=== PATIENT | female | born 1950 | race Caucasian/White ===

== ENCOUNTER 2021-04-26 07:35 | Outpatient (REF) | payer MEDICARE, SELFPAY ==
--- NOTE | ~2021-04-26 | MM_ITS ---
EXAMINATION: MM SCREENING DIGITAL BREAST TOMOSYNTHESIS, BILATERAL CLINICAL INFORMATION: Screening. Asymptomatic. The lifetime risk of breast cancer based on the Tyrer-Cuzick Model is 3%. COMPARISON: Mammography: 04/20/2020, 04/15/2019, 04/14/2018 TECHNIQUE: Digital breast tomosynthesis is performed in both the craniocaudal and mediolateral oblique views along with computer-aided detection (CAD). Synthesized 2D images are generated from the tomosynthesis. FINDINGS: There are scattered areas of fibroglandular density (ACR BI-RADS breast composition Category b). There are no significant masses, abnormal calcifications, or other abnormalities. Parenchymal pattern is similar to prior studies. There is stable nodule mid upper outer left breast and all in stable nodularity central anterior right breast. No developing density. MM/MM tomosynthesis screening BI IMPRESSION: No mammographic evidence of malignancy. ASSESSMENT: BI-RADS 2: Benign RECOMMENDATION: Routine annual mammography screening. This patient's information was entered into a reminder system with a target due date for their next mammogram.
== END 2021-04-26 07:36 | disposition home or self-care (01) ==
LOC: HO.MAMMO 07:35
PROVIDERS: PCP Nurse Practitioner Family; Visit Provider Nurse Practitioner Family
DX: Z12.31 Encounter for screening mammogram for malignant neoplasm of breast (principal)
CPT/HCPCS: 77063; 77067

== ENCOUNTER 2022-04-29 08:50 | Outpatient (REF) | payer MEDICARE, SELFPAY ==
--- NOTE | ~2022-04-29 | MM_ITS ---
EXAMINATION: MM SCREENING DIGITAL BREAST TOMOSYNTHESIS, BILATERAL CLINICAL INFORMATION: Screening. Asymptomatic. The lifetime risk of breast cancer based on the Tyrer-Cuzick Model is 3%. COMPARISON: Mammography: 04/26/2021, 04/20/2020, 04/15/2019, 04/14/2018 TECHNIQUE: Digital breast tomosynthesis is performed in both the craniocaudal and mediolateral oblique views along with computer-aided detection (CAD). Synthesized 2D images are generated from the tomosynthesis. FINDINGS: There are scattered areas of fibroglandular density (ACR BI-RADS breast composition Category b). Parenchymal pattern is similar to prior studies. There is scattered stable minor nodularity mid upper outer left breast and anterior central right breast. There is no developing density or interval architectural abnormality or significant mass. No abnormal calcifications. The axilla and skin contours are unremarkable. No significant changes. MM/MM tomosynthesis screening BI IMPRESSION: No significant changes from prior studies. ASSESSMENT: BI-RADS 2: Benign RECOMMENDATION: Routine annual mammography screening. This patient's information was entered into a reminder system with a target due date for their next mammogram.
== END 2022-04-29 08:51 | disposition home or self-care (01) ==
LOC: HO.MAMMO 08:50
PROVIDERS: PCP Nurse Practitioner Family; Visit Provider Nurse Practitioner Family
DX: Z12.31 Encounter for screening mammogram for malignant neoplasm of breast (principal)
CPT/HCPCS: 77063; 77067

== ENCOUNTER 2023-05-01 08:37 | Outpatient (REF) | payer MEDICARE, SELFPAY | END 2023-05-01 08:38 | disposition home or self-care (01) | LOC: HO.MAMMO 08:37 | PROVIDERS: PCP Nurse Practitioner Family; Visit Provider Nurse Practitioner Family | DX: Z12.31 Encounter for screening mammogram for malignant neoplasm of breast (principal) | CPT/HCPCS: 77063; 77067 ==

== ENCOUNTER → 2023-05-01 08:45 | Outpatient (BNV) | payer MEDICARE, SELFPAY | PROVIDERS: PCP Nurse Practitioner Family; Visit Provider Radiology Diagnostic Radiology | DX: Z12.31 Encounter for screening mammogram for malignant neoplasm of breast (principal) | CPT/HCPCS: 77063; 77067 ==

== ENCOUNTER 2024-05-03 09:28 | Outpatient (REF) | payer MEDICARE, SELFPAY ==
--- NOTE | ~2024-05-03 | MM_ITS ---
EXAMINATION: MM SCREENING DIGITAL BREAST TOMOSYNTHESIS, BILATERAL CLINICAL INFORMATION: Screening. Asymptomatic. COMPARISON: Mammography: Comparison is made with available priors TECHNIQUE: Digital breast mammography with tomosynthesis is performed in both the craniocaudal and mediolateral oblique views along with computer-aided detection (CAD). FINDINGS: There are scattered areas of fibroglandular density (ACR BI-RADS breast composition Category b). Postsurgical changes to the left breast are stable. There are no significant masses, abnormal calcifications, or other abnormalities. MM/MM tomosynthesis screening BI IMPRESSION: No mammographic evidence of malignancy. ASSESSMENT: BI-RADS BI-RADS 2 - Benign Findings RECOMMENDATION: Routine annual mammography screening. 1 year F/U This examination should not preclude the clinical evaluation of a suspicious palpable abnormality. This patient's information was entered into a reminder system with a target due date for their next mammogram. Electronically signed by: Jennifer Olson DO 05/12/2024 07:10 PM EDT
== END 2024-05-03 09:29 | disposition home or self-care (01) ==
LOC: HO.MAMMO 09:28
PROVIDERS: PCP Nurse Practitioner Primary Care; Visit Provider Nurse Practitioner Primary Care
DX: Z12.31 Encounter for screening mammogram for malignant neoplasm of breast (principal)
CPT/HCPCS: 77063; 77067

== ENCOUNTER → 2024-05-03 09:45 | Outpatient (BNV) | payer MEDICARE, SELFPAY | PROVIDERS: PCP Nurse Practitioner Primary Care; Visit Provider Internal Medicine | DX: Z12.31 Encounter for screening mammogram for malignant neoplasm of breast (principal) | CPT/HCPCS: 77063; 77067 ==

== ENCOUNTER 2025-03-31 09:32 | Outpatient (REF) | payer MEDICARE, SELFPAY ==
[2025-03-31 10:48] LABS: MANUAL DIFF FLAG NO
[2025-03-31 11:37] LABS: Hematocrit 42.2 % (37.0-47.0); Hemoglobin 14.6 g/dl (12.0-16.0); Imm Gran Abs Auto 0.01 X10*3/uL (0.00-0.03); Imm Gran Pct Auto 0.2 % (0.0-0.4); Lymphocytes Absolute Auto 0.7 X10*3/uL (1.2-4.9); Mean Corpuscular HGB Conc 34.6 g/dl (31.0-35.0); Mean Corpuscular Hemoglobin 29.4 pg (27.0-33.0); Mean Corpuscular Volume 85.1 fL (80.0-98.0); NRBC Abs Auto 0.000 X10*3/uL (0.0-0.012); NRBC Pct Auto 0.0 /100WBC (0.0-0.2); Platelet Count 275 X10*3/uL (160-400); Red Blood Count 4.96 X10*6/uL (4.20-5.50); White Blood Count 5.8 X10*3/uL (4.8-10.8)
[2025-04-05 07:07] LABS: Class Alternaria alternata 1; Class Aspergillus fumigatus 0; Class Bermuda Grass 0; Class Birch 0; Class Cat Dander 0; Class Cladosporium herbarum 0; Class Cockroach 0; Class Common Ragweed 0; Class Cottonwood 0; Class Derm. pterony 0/1; Class Dermatophagoides farinae 1; Class Dog Dander 0; Class Elm 0; Class Maple Box Elder 0; Class Mountain Cedar 0; Class Mouse Urine Protein 0; Class Mugwort 0; Class Oak 0; Class Penicillium crysogenum 0; Class Rough Pigweed 0; Class Sheep Sorrel 0; Class Sycamore 0; Class Timothy Grass 0; Class Walnut Tree 0; Class White Ash 0; Class White Mulberry 0; D002 - IgE D farinae 0.36 kU/L; E001 - IgE Cat Dander <0.10 kU/L; E005 - IgE Dog Dander <0.10 kU/L; G006 - IgE Timothy Grass <0.10 kU/L; I006-IgE Cockroach, German <0.10 kU/L; M002 - IgE Cladosporium herbar <0.10 kU/L; M003 - IgE Aspergillus fumigat <0.10 kU/L; M006 - IgE Alternaria alternat 0.36 kU/L; T001 IgE Maple/Box Elder <0.10 kU/L; T006 - IgE Cedar, Mountain <0.10 kU/L; T007 - IgE Oak, White <0.10 kU/L; T008 IgE Elm, American <0.10 kU/L; T010 - IgE Walnut <0.10 kU/L; T011 - IgE Maple Leaf Sycamore <0.10 kU/L; T014 - IgE Cottonwood <0.10 kU/L; T015 - IgE Ash, White <0.10 kU/L; T070 - IgE White Mulberry <0.10 kU/L; W001 - IgE Ragweed, Short <0.10 kU/L; W006 - IgE Mugwort <0.10 kU/L; W014 IgE Pigweed, Common <0.10 kU/L; W018 IgE Sheep Sorrel <0.10 kU/L
== END 2025-03-31 09:33 | disposition home or self-care (01) ==
LOC: HO.LAB 09:32
PROVIDERS: PCP Nurse Practitioner Primary Care; Visit Provider Internal Medicine Pulmonary Disease
DX: J84.9 Interstitial pulmonary disease, unspecified (principal); R05.3 Chronic cough; Z91.09 Other allergy status, other than to drugs and biological substances
CPT/HCPCS: 36415; 82785; 85025; 86003; 99202

== ENCOUNTER 2025-03-31 09:32 | Outpatient (AMB) | payer MEDICARE, SELFPAY ==
--- OUTSIDE RECORDS SUMMARY | 2024-12-08 05:05 | XMS_ITS | Continuity of Care Document ---
Author Organization [facility] Address [address] [place] [address] Phone Care Team Providers Care Ear Nose Throat Surgeon Name Role Phone Sachin NEWMAN, Check Unavailable [...] exam of neck spine, complete Office[place] [facility] [place] Advance Directives Directive Yes / No Effective Date File Name No Information Encounters Encounter Description Practice Location Reason(s) For Visit Diagnoses Date Provider Providers Copied on Encounter Office/outpa tient visit,est, [facility], [address], [place], [place], [address], tel:[phone] [facility] [address] right hand pain (chief complaint) Body mass index [BMI] 27.0-27.9, adultTrigger finger, right ring finger 5 Sachin Ashley. [address], [place], [place], [address] , [place]. tel:[phone] Referring Provider: Dion Stephenson MD C, [address], [place], [address] . tel:[phone] Office/outpa tient visit,[facility], [address], [place], [place], [address], [place] tel:[phone] [facility] right hand pain (chief complaint) Trigger finger, right ring finger Dec-0 4 Sachin Ashley. [address], [place], [place], [address] , [place]. tel:[phone] Referring Provider: Dion Tony, [address], [place], [address] . tel:[phone] Office/outpa tient visit,[facility], [address], [place], [place], [address], [place] tel:[phone] [facility] - Walk-in right hand pain (chief complaint) lumbar spine (chief complaint) Right hand painLumbar painTrigger finger, right ring fingerTrochanter ic bursitis of right hip Oct-2 4 Favio Tony Alexandr. [address], [place], [place], [address] , [place]. tel:[phone] Referring Provider: Alexandr Tony, [address], [place], [address] . tel:[phone] Office/outpa tient visit,[facility], [address], [place], [place], [address], [place] tel:[phone] [facility] - Walk-in right hip pain (chief complaint) Acute right hip painGreater trochanteric bursitis of right hip Jun- 3 Favio Tony Alexandr. [address], [place], [place], [address] , [place]. tel:[phone] Referring Provider: Alexandr Tony, [address], [place], [address] . tel:[phone] Office/outpa tient visit,[facility], [address], [place], [place], [address], [place] tel:[phone] [facility] [address] cervical spine (chief complaint) Cervical stenosis of spineRadiculopat hy, cervical region 2 Ganesh Easley. [address], [place], [place], [address] , [place]. tel:[phone] Referring Provider: Tomi Reina MD, [address], [place], [address] . tel:[phone] Office/outpa tient visit,[facility], [facility], [address], [place], [place], [address], [place] tel:[phone] [facility] [address] cervical spine (chief complaint) Cervical stenosis of spineRadiculopat hy, cervical region 2 Ganesh Pattersonia. [address], [place], [place], [address] , [place]. tel:[phone] Referring Provider: Tracee RAMOS, [address], [place], [address] . tel:[phone] Office/outpa tient visit,[facility], [facility], [address], [place], [place], [address], [place] tel:[phone] [facility] [address] cervical spine (chief complaint) Cervical stenosis of spineRadiculopat hy, cervical region 2 Ganesh Easley. [address], [place], [place], [address] , [place]. [phone] Referring Provider: Tracee RAMOS, [address], [place], [address] . tel:[phone] Office/outpa tient visit,est, [facility], [address], [place], [place], [address], [place] tel:[phone] [facility] [address] cervical spine (chief complaint) Cervical stenosis of spineHerniated nucleus pulposus, C4-5Herniated nucleus pulposus, C5-6Herniated nucleus pulposus, C6-7Spondylolist hesis, cervical regionConnective tissue and disc stenosis of intervertebral foramina of cervical regionRight arm numbness 1 Shay Gonzalez. [address], [place], [place], [address] , [place]. [phone] Referring Provider: Carlos Day MD, [address], [place], [address] . tel:[phone] Office/outpa tient visit,[facility], [address], [place], [address], [place] tel:[phone] [facility] 204 cervical spine (chief complaint) Radiculopathy, cervical regionCervical stenosis of spineBody mass index (BMI) 27.0-27.9, adult 1 Nuno Krishna. [address], [place], [place], [address] , [place]. [phone] Referring Provider: Tomi Reina MD, [address], [place], [address] . tel:[phone] Office/outpa tient visit,[facility], [address], [address], [place] tel:[phone] [facility] 400 cervical spine (chief complaint) Cervical stenosis of spineRadiculopat hy, cervical regionHerniated nucleus pulposus, C4-5Herniated nucleus pulposus, C5-6Herniated nucleus pulposus, C6-7Connective tissue and disc stenosis of intervertebral foramina of cervical regionRight arm numbness 1 Shay Gonzalez. [address], [place], [place], [address] , [place]. tel:[phone] Referring Provider: Daquan Koo, [address], [place], [address] . tel:[phone] [facility], [address], [place], [place], [address], [place] tel:[phone] [facility] [address] Body mass index (BMI) 27.0-27.9, adult 1 Nuno Krishna. [address], [place], [place], [address] , [place]. tel: [phone] Referring Provider: Tomi Reina MD, [address], [place], [address] . tel:[phone] Office/outpa tient visit,[facility], [address], [place], [place], [address], [place] tel:[phone] [facility] [address] cervical spine (chief complaint) Body mass index (BMI) 27.0-27.9, adultRadiculopat hy, cervical regionCervical stenosis of spine 1 Nuno Krishna. [address], [place], [place], [address] , [place]. tel: [phone] Referring Provider: Daquan Koo, [address], [place], [address] . tel:[phone] Office/outpa tient visit,[facility], [address], [place], [place], [address], [place] tel:[phone] [facility] [address] cervical spine (chief complaint) Neck painBody mass index (BMI) 27.0-27.9, adultRadiculopat hy, cervical region 0 Merced Butt. [address], [place], [place], [address] , [place]. tel:[phone] Referring Provider: Daquan Koo, [address], [place], [address] . tel:[phone] [facility], [address], [place], [place], [address], tel:[phone] [facility] PT [address] Radiculopathy, cervical region 4-202 0 Guettler DPT Rani. [address], [place], [facility], . tel:[phone] Referring Provider: Carlos Day MD, [address], [place], [address] . tel:[phone] [facility], [address], [place], [place], [address], tel:[phone] [facility] PT [address] Radiculopathy, cervical region 1 0 Guettler DPT Rani. [address] [facility], [place], [facility], . tel:[phone] Referring Provider: Carlos Day MD, [address], [place], [address] . tel:[phone] [facility], [address], [place], [place], [address], tel:[phone] [facility] - PT [address] Cervical radiculopathy 9-202 0 Guettler DPT Rani. [address]50 [facility], [place], [facility], . tel:[phone] Referring Provider: Carlos Day MD, [address], [place], [address] . tel:[phone] Office/outpa tient visit,[facility], [address], [place], [place], [address], tel:[phone] [facility] - Walk-in cervical spine (chief complaint) Body mass index (BMI) 27.0-27.9, adultNeck painCervical radiculopathy Nov-3 0 0 Miriam Ortiz. [address], [place], [place], [address] , [place]. tel:[phone] Referring Provider: Angel Tony, [address], [place], [address] . tel:[phone] Family History Family Member Type Diagnosis Age At Onset No Information Payers Payer name Insurance type Covered libertarian ID Authoriza tion(s) MEDICARE [id number] BCBS PPO OUT OF STATE [id number] Social History Type Description Quantity Date Captured [...] 2019. Patient received 2 injections one in [place] and one with Alexandr HUNTLEY which provided [...] finger. She states she an injection up [place] in April 2022 that she has been [...] still symptomatic, I would recommend an A1 randy release at that time. Related to Trigger [...] today's injection. She will be returning to [facility] for the summer in another month. [...] ongoing since 2022, no trauma. Seen at [facility] on 10/21/2023 and received an injection which provided significant improvement X8 months. Discussed repeat injection vs TFR; wants to proceed non-opOn 12/08/2024: Moderate improvement s/p RT RF TF injection received on 07/11/2024, with mild recurrence. Unchanged exam. Requests repeat inj Patient Care Teams Name Effective Dates (start - stop) Status Members No Information
[2025-03-31 09:35] VITALS: BP 106/62; PULSE 71; O2SAT 97; BMI 27.8
--- NOTE | 2025-03-31 09:35 | MHC.OFFVIS ---
Vital Signs 03/31/25 09:35 Height 5 ft 2 in Weight 152 lb BMI 27.8 BP 106/62 Blood Pressure Location Lt brachial Position Sitting Pulse 71 Pulse Source Pulse Oximeter Pulse Oximetry (%) 97 Oxygen Delivery Method Room Air Intake Visit Reasons: Chronic cough Allergies polyvinyl Allergy (Unknown, Uncoded 03/31/25 09:45) Unknown PPD Allergy (Unknown, Uncoded 03/31/25 09:45) Unknown Sulfa Allergy (Unknown, Uncoded 03/31/25 09:45) Unknown HPI HPI Chronic cough: Details: 74-year-old lady, essentially nonsmoker, here for evaluation of chronic cough ongoing for approximately 2 years, mostly nocturnal, essentially nonproductive, with no triggering factor. Denies GERD symptoms. Patient previously employed as an RT. no family history of lung disease. Patient has been tried on systemic glucocorticoids and albuterol MDI with no significant changes in her cough. She does use lisinopril. [facility] Social History (Updated 03/31/25 @ 09:45 by Mari Melvin [facility]) Patient Tobacco Use Status: Never used Tobacco Review of Systems Const Denies daytime sleepiness, Denies excessive sweating, Denies fatigue, Denies fever(s), Denies lethargy, Denies malaise, Denies night sweats, Denies snoring and Denies weight loss Eyes Denies blurry vision and Denies itchy eyes ENT Denies nasal congestion, Denies post nasal drip, Denies sinus pain, Denies sinus pressure and Denies other ( Thrush) Card Denies chest pain, Denies pedal edema, Denies dyspnea, Denies orthopnea and Denies paroxysmal nocturnal dyspnea Resp Reports cough, Denies hemoptysis, Denies excessive phlegm production, Denies dyspnea, Denies snoring and Denies wheezing GI Denies abdominal pain and Denies heartburn Musc Denies myalgias, Denies arthralgias and Denies joint swelling Skin/Breast Denies rash Neuro Denies memory loss and Denies seizure-like activity Psych Denies abnormal sleep pattern, Denies anxiety and Denies memory loss Endo Denies excessive sweating, Denies fatigue and Denies heat intolerance Phuc/Lymph Denies easy bruising Aller/Immun Denies itchy eyes, Denies seasonal rhinorrhea and Denies wheezing Physical Exam Vital Signs: Last Vital Signs Pulse 71 03/31/25 09:35 BP 106/62 03/31/25 09:35 Pulse Ox 97 03/31/25 09:35 Oxygen Delivery Method Room Air 03/31/25 09:35 BMI result Body Mass Index 27.8 Const General: no acute distress and alert Nutritional Appearance: not obese Orientation/consciousness: Other orientation findings ( oriented) HEENT Head: Yes atraumatic Eyes General: appearance normal, both eyes and all related structures Sclerae: sclerae normal EOM: EOMs intact bilaterally Neck Neck: Yes supple Lymphatic: no lymphadenopathy noted Resp Effort & Inspection: normal respiratory effort and no use of accessory muscles Auscultation: clear to auscultation bilaterally Cardio Rate: regular rate Rhythm: regular rhythm Heart sounds: no gallops, no murmurs and no rubs Skin General skin exam: other ( warm) Extrem General: No clubbing, No cyanosis and No edema Assessment & Plan Assessment & Plan (1) Environmental allergies: Code(s): Z91.09 - Other allergy status, other than to drugs and biological substances Category: Medical Plan: Will obtain CBC with differential, IgE level, and RAST panel for further evaluation. (2) ILD (interstitial lung disease): Code(s): J84.9 - Interstitial pulmonary disease, unspecified Category: Medical Plan: Will obtain CT chest for further evaluation. (3) Chronic cough: Code(s): R05.3 - Chronic cough Category: Medical Plan: Unclear etiology, may have drug-induced (lisinopril), reactive airway disease, and/or allergic component. Will obtain full PFT. Orders: Orders PFT pulmonary function test Today R05.3 - Chronic cough Resp Allergy Profile Region I Today Z91.09 - Other allergy status, other than to drugs and biological substances CT chest wo IV con Today J84.9 - Interstitial pulmonary disease, unspecified Complete Blood Count Auto Diff Today Z91.09 - Other allergy status, other than to drugs and biological substances Coding Level of Care Code New Pt Level 4 (63037) Diagnoses Environmental allergies Z91.09 ILD (interstitial lung disease) J84.9 Chronic cough R05.3
--- OUTSIDE RECORDS SUMMARY | 2025-03-31 10:19 | XMS_ITS | Clinical Summary ---
Author Organization [facility] Address [address] [place] [address] Phone Care Team Providers Care Welder First Class Name Role Phone Heather Haynes WORKERS COMPENSATION CLAIMS ANALYST Unavailable [phone] Rod Olivia HOME AND FAMILY LIVING PROFESSOR Primary Care Provider Allergies Active Allergy Reactions Criticality Noted Date Comments Chemical Allergens Rash Low 04/14/2024 PPD hair dye Sulfa (Sulfonamide Antibiotics) Rash Low 11/01 Medications atenolol (TENORMIN) 25 MG tabletIndications:E ssential hypertension Take 1 tablet (25 mg total) by mouth daily for 25 days. 90 tablet 3 4 Active escitalopram oxalate (LEXAPRO) 20 MG tabletIndications:A nxiety Take 1 tablet (20 mg total) by mouth daily. 90 tablet 3 4 Active atorvastatin (LIPITOR) 40 MG tabletIndications:M ixed hyperlipidemia Take 1 tablet (40 mg total) by mouth every morning. 90 tablet 3 4 Active hydroCHLOROthiazide 25 MG tabletIndications:E ssential hypertension Take 1 tablet (25 mg total) by mouth every morning. 90 tablet 3 4 Active lisinopril (PRINIVIL,ZESTRIL) 20 MG tabletIndications:E ssential hypertension Take 1 tablet (20 mg total) by mouth every morning. 90 tablet 3 4 Active LORazepam (ATIVAN) 0.5 MG tabletIndications:P rimary insomnia Take 1-2 tablets (0.5-1 mg total) by mouth nightly at bedtime as needed. 60 tablet 1 4 Active Active Problems Problem Noted Date Diagnosed Date Depression 03/04/2023 03/04/2023 History of squamous cell carcinoma of skin 02/26 Achilles tendinitis of left lower extremity 02/01 Osteopenia determined by x-ray 01/19/2019 Anxiety 11/10/2017 Mixed hyperlipidemia 11/10/2017 Essential hypertension 11/10/2017 Primary insomnia 11/10/2017 Encounters Date Type Department Care Team Description 03/09/2025 9:25 AM EDT - 03/09/2025 11:59 PM EDT Hospital Encounter [facility] [address] [place] [address] Rod Olivia CNP Discharge Disposition: Home or Self Care 01/12/2025 9:30 AM EDT Office Visit [facility] [address] [place] [address] Rod Olivia CNP Essential hypertension (Primary Dx); Encounter for screening mammogram for malignant neoplasm of breast; Mixed hyperlipidemia; Generalized anxiety disorder; Hyperglycemia from Last 3 Months Immunizations Immunization Administration Dates Next Due COVID-19 (Pre-05/25) Pfizer Vaccine, mRNA, PF 09/19/2020,08/30/2020 COVID-19 (Pre-05/25) Pfizer Vaccine, mRNA, sarah-sucrose, PF 12/03/2021,06/25/2021 INFLUENZA, SPLIT VIRUS, TRIV ALENT W/ PRESERVATIVE IM 05/19/2014 Influenza High-Dose Quadriva lent Preservative Free IM 05/05/2022,05/04/2020 Influenza High-Dose Trivalen t Preservative Free IM 04/14/2024,05/27/2019,04/16/2018,06/10 Influenza Quadrivalent w/ Pr eservative IM 05/15/2017 Pneumococcal conjugate PCV13 11/11/2016 Pneumococcal polysaccharide PPSV23 02/17/2020, Tdap 02/17/2020 Zoster live 04/12/2013 Family History Medical History Relation Comments Bipolar disorder Daughter Cardiomyopathy Father Heart disease Mother Hypertension Mother Hypertension Sister Relation Status Comments Daughter Alive Father (Age 64) Mother (Age 95) Sister Alive Social History Tobacco Use Types Packs/Day Years Used Date Smoking Tobacco: Never Smokeless Tobacco: Never Tobacco Cessation:Counseling Given: Not Answered Alcohol Use Standard Drinks/Week Comments Yes 2 (1 standard drink = 0.6 oz pur e alcohol) 1-2 drink, 2-3 x week Child or Family Care Answer Date Record ed Do you have problems with on e of the following making it difficult for you to work, study, or receive health care? No 12/28/2020 Education Answer Date Recorded Are you interested in more education? Not on kendell e 12/29/2022 Are you concerned about learning? Not on file 12/29/2022 No 12/29/2022 No 12/29/2022 Food Answer Date Recorded Within the past 6 months we worried whether our food would run out before we got money to buy more. Never True 12/28/2020 Within the past 6 months the food we bought just didn't last and we didn't have enough money to get more. Never True Residential Stability Answer Date Recor ded What is your housing situation today? I have richard sing 12/28/2020 How many times have you move d in the past 12 months? Zero (I did not move) 12/28/2020 06 Are you worried that in t he next 2 months, you may not have your own housing to live in? No 12/28/2020 Paying for Meds Answer Date Recorded Do you have trouble paying for medicines? No 12/28/2020 Paying Utility Bills Answer Date Record ed Do you have trouble paying your heating or elect ricity bill? No 12/28/2020 Transportation Answer Date Recorded Has the lack of transportati on kept you from medical appointments or from getting medications? No 12/28/2020 Unemployment Answer Date Recorded Are you currently unemployed or working on a part-time or temporary basis, and looking for work? No 12/28/2020 Digital Access Answer Date Recorded No 12/27/2022 No 12/27/2022 Reliable internet access at home? Not on file 12/27/2022 Device with a working camera? Not on file Intimate Partner Violence Answer Date R ecorded Denied Basic Needs Not on file 04/14/2024 In the past 12 months have y ou been in a relationship with a person who hurts, threatens, or tries to control you? No 04/14/2024 Worried food would run out Not on file 04/14 In the past 12 months have y ou been in a relationship with a person who hurts, threatens, or tries to control you? 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 on file Not on file Not o n file Last Filed Vital Signs Vital Sign Reading Time Taken Comments Blood Pressure 126/72 01/12/2025 9:07 AM EDT Pulse 72 01/12/2025 9:07 AM EDT Temperature 36 C (96.8 F) 01/12/2025 9:07 AM EDT Respiratory Rate 16 03/04/2023 9:21 AM EDT Oxygen Saturation 98% 01/12/2025 9:07 AM EDT Inhaled Oxygen Concentration - - Weight 68 kg (150 lb) 01/12/2025 9:07 AM EDT Height 155.6 cm (5' 1.26 ) 01/12/2025 9:07 AM ED T Body Mass Index 28.1 01/12/2025 9:07 AM EDT Plan of Treatment Upcoming Encounters Date Type Department Care Team (Late st Contact Info) Description 04/20/2025 1:30 PM EDT Office Visit [facility] [place] [facility] [address] [place] [address] Rod Olivia, HOME AND FAMILY LIVING PROFESSOR [address] [place] [address] [email or web address] Health Maintenance Due Date Last Done Comments COLOGUARD 12/17/1995 FIT TEST 12/17/1995 FOBT 12/17/1995 SIGMOIDOSCOPY 12/17/1995 VIRTUAL COLONOSCOPY 12/17/1995 ZOSTER VACCINES (2 of 3) 06/07/2013 04/12/2013 FOLLOW UP BONE DENSITY TESTING 04/15/2021 04/15/2019, 10/17/2015 COVID-19 VACCINE ( season) 2024 12/03/2021, 06/25/2021, 09/19/2020, Additional history exists DEPRESSION SCREENING 04/14/2025 04/14/2024 BLOOD PRESSURE 07/14/2025 01/12/2025 RSV VACCINE (1 - 1-dose 75+ series) 2025 MAMMOGRAM 01/12/2026 01/12/2025, 05/03, 01/05/2024, Additional history exists COLONOSCOPY 01/29/2026 01/30/2016 COLORECTAL CANCER SCREENING 01/29/2026 CREATININE LEVEL 03/09/2026 03/09/2025, 07/2024, 03/17/2022, Additional history exists LIPID PANEL 03/09/2026 03/09/2025, 01/01, 03/24/2023, Additional history exists POTASSIUM LEVEL 03/09/2026 03/09/2025, 01/01, 03/17/2022, Additional history exists Adult Td,Tdap Booster 02/16/2030 02/17/2020 OSTEOPOROSIS SCREENING INITIAL (ONE-TIME) Completed 04/15/2019, 10/17/2015 PNEUMOCOCCAL VACCINES (50+ years) Completed 02/17/2020, 11/11/2016, 06/09/2012 HEPATITIS C SCREENING Completed 02/29/2020 SMOKING STATUS SCREENING (Once After 26 Yrs) Completed 04/14/2024 HEPATITIS A VACCINES Aged Out No long er eligible based on patient's age to complete this topic HIB VACCINES Aged Out No longer eligi ble based on patient's age to complete this topic MENINGOCOCCAL VACCINES (ACWY) Aged Out No longer eligible based on patient's age to complete this topic MENINGOCOCCAL VACCINES (B) Aged Out N o longer eligible based on patient's age to complete this topic Medical Devices Not on file Procedures Procedure Name Priority Date/Time Associated Diagnosis Comments COMPREHENSIVE METABOLIC PANEL Routine 03/09/2025 9:24 AM EDT Essential hypertension LIPID PANEL Routine 03/09/2025 9:24 AM EDT Mixed hyperlipidemia HEMOGLOBIN A1C Routine 03/09/2025 9:24 AM EDT Hyperglycemia CBC AND DIFFERENTIAL Routine 03/09/2025 9:24 AM EDT Essential hypertension BI MAMMOGRAM SCREENING (BILATERAL) Routine 01/12/2025 9:28 AM EDT Encounter for screening mammogram for malignant neoplasm of breast HEPATITIS C ANTIBODY, QUALITATIVE Routine 02/29/2020 8:40 AM EDT Routine general medical examination at a [facility] care facility BD DXA SCREENING Routine 04/15/2019 from Last 3 Months or Most Recently Relevant to Health Maintenance Results * (ABNORMAL) Comprehensive metabolic panel (03/09/2025 9:24 AM EDT) SODIUM 133 133 - 146 mmol/L [facility] POTASSIUM 4.2 3.3 - 5.1 mmol/L [facility] CHLORIDE 94(L) 96 - 108 mmol/L [facility] CO2 27 21 - 35 mmol/L [facility] BUN 10 6 - 19 mg/dL [facility] CREATININE 0.50 0.5 - 1.5 mg/dL [facility] GLUCOSE 113(H) 70 - 99 mg/dL [facility] ALBUMIN 4.5 3.9 - 4.8 g/dL [facility] TOTAL PROTEIN 7.2 6.5 - 8.0 g/dL [facility] CALCIUM 9.7 8.4 - 10.3 mg/dL [facility] ALKALINE PHOSPHATASE 95 39 - 117 U/L [facility] TOTAL BILIRUBIN 1.0 0.0 - 1.2 mg/dL [facility] AST 28 0 - 37 U/L [facility] ALT 28 0 - 40 U/L [facility] GLOBULIN 2.7 1 - 4.8 g/dL [facility] EGFR 98 >59 mL/min/1.7 3m2 [facility] Comment:Estimated glomerular filtration rate calculated using the CKD-EPI refit equation. ANION GAP 16 10 - 20 mmol/L [facility] Blood 03/09/2025 9:24 AM EDT 03/09/2025 9:29 AM EDT us Rod Olivia HOME AND FAMILY LIVING PROFESSOR LAB BLOOD ORDERABLES F inal Result [facility] [address] [place] [address] * (ABNORMAL) CBC and differential (03/09/2025 9:24 AM EDT) WBC 5.50 4.00 - 11.00 K/uL [facility] RBC 4.83 4.00 - 5.20 M/uL [facility] HGB 14.2 12.0 - 16.0 g/dL [facility] HCT 41.9 36.0 - 46.0 % [facility] PLT 246 150 - 450 K/uL [facility] MCV 86.7 80.0 - 100.0 fL [facility] MCH 29.4 27.0 - 31.0 pg [facility] MCHC 33.9 32.0 - 36.0 g/dL [facility] RDW 12.8 11.5 - 14.5 % [facility] MPV 9.8 8.4 - 12.0 fL [facility] NRBC 0.00 0.00 /100 WBCs [facility] ABSOLUTE NRBC 0.00 0.00 K/uL [facility] DIFF METHOD Auto [facility] NEUTS 66.4 48.0 - 76.0 % [facility] LYMPHS 16.2(L) 18.0 - 41.0 % [facility] MONOS 11.6(H) 4.0 - 11.0 % [facility] EOS 4.7 0.0 - 5.0 % [facility] BASOS 0.9 0.0 - 1.5 % [facility] Granulocytes, immature (%) 0.2 0.0 - 0.9 % [facility] ABSOLUTE NEUTS 3.65 1.92 - 7.60 K/uL [facility] ABSOLUTE LYMPHS 0.89 0.72 - 4.10 K/uL [facility] ABSOLUTE MONOS 0.64 0.16 - 1.10 K/uL [facility] ABSOLUTE EOS 0.26 0.00 - 0.50 K/uL [facility] ABSOLUTE BASOS 0.05 0.00 - 0.15 K/uL [facility] Granulocytes, immature 0.01 0.00 - 0.09 K/uL [facility] Blood 03/09/2025 9:24 AM EDT 03/09/2025 9:29 AM EDT Rod Thompson Corwin HOME AND FAMILY LIVING PROFESSOR LAB BLOOD ORDERABLES F inal Result Performing Organization Address City/[facility]/ZIP Co de Phone Number [address] [address] * Hemoglobin A1c (03/09/2025 9:24 AM EDT) HEMOGLOBIN A1C 5.8 4.3 - 5.8 % [facility] Blood 03/09/2025 9:24 AM EDT 03/09/2025 9:29 AM EDT Rod Donna Olivia [facility] LAB BLOOD ORDERABLES F inal Result Performing Organization Address [facility] Co de Phone Number [address] [address] * (ABNORMAL) Lipid panel (03/09/2025 9:24 AM EDT) HDL 55 mg/dL [facility] Comment: Interpretation <40 mg/dL: Low HDL cholesterol (major risk factor for CHD) Greater than or equal to 60 mg/dL: High HDL cholesterol ( negative risk factor for CHD) HDL - cholesterol is affected by a number of factors, e.g. smoking, excerise, hormones, sex and age. CHOLESTEROL 214 0 - 240 mg/dL [facility] TRIGLYCERIDES 211(H) 30 - 160 mg/dL [facility] LDL 117 50 - 129 mg/dL [facility] Comment: LDL levels in terms of risk for coronary heart disease: <100 mg/dL: Optimal 100-129 mg/dL: Near or above optimal 130-159 mg/dL: Borderline high 160-189 mg/dL: High >190 mg/dL: Very High CARDIAC RISK RATIO 3.9 3.3 - 4.4 C [facility] Blood 03/09/2025 9:24 AM EDT 03/09/2025 9:29 AM EDT us Rod Olivia HOME AND FAMILY LIVING PROFESSOR LAB BLOOD ORDERABLES F inal Result Performing Organization Address [facility] Co de Phone Number [address] [address] * HM MAMMOGRAPHY FOR RESULT ENTRY ONLY (05/12/2024 1:00 PM EDT) us Historical Provider MD HEALTH MAINTENANCE Edited Result - Final * Hepatitis C antibody, qualitative (02/29/2020 8:40 AM EDT) HCV NON-REACTIV E NON-REACTI VE [facility] Blood 02/29/2020 8:40 AM EDT 02/29/2020 8:45 AM EDT us Christine Gordon NP LAB BLOOD ORDERABLES Final Resu lt Performing Organization Address [facility] Co de Phone Number [address] [address] * DXA Screening (04/15/2019) Anatomical Region Laterality Modality Bone Density Bone Density us Christine Gordon NP IMG BD BONE DENSITY DEXA Edited Result - Final from Last 3 Months or Most Recently Relevant to Health Maintenance Insurance MEDICARE PART A & B [employer] SU[employer]MENT MEDICARE PART A & B [employer] SUPPLEMENT MEDICARE PART A & B [employer] MEDEX SUPPLEMENT MEDICARE PART A & B [employer] MED[employer] SUPPLEMENT MEDICARE PART A & B [employer] MED[employer] SUPPLEMENT MEDICARE PART A & B [employer] MED[employer] SUPPLEMENT MEDICARE PART A & B [facility] MEDEX SUPPLEMENT MEDICARE PART A & B [employer] SUPPLEMENT MEDICARE PART A & B [employer] SUPPLEMENT Care Teams Welder First Class Relationship Specialty Start Date End Date Rod Olivia CNP [address] [place] [address], [address] [place] [address] PCP - General Family Medicine 08/25/23 Heather Haynes NP [address] [place] [address] Family Medicine 02/17/20 Additional Source Comments The information contained in this document represents components of the legal health record. It is not the complete legal health record.[facility]
--- OUTSIDE RECORDS SUMMARY | 2025-03-31 10:19 | XMS_ITS | Patient Health Record ---
Author Organization [facility] Address [address] [place] [address] Care Team Providers Care Medical Secretary Receptionist Name Role Phone Heidi SIMMONS, Christine Primary Care Provider Praveen Walker Jr Unavailable [phone] Allergies Allergen (clinical drug ingredient) Drug/Non Drug Allergy documented on EMR Reaction Allergy Type Onset Date Status Sulfa Unknown Drug Allergy Active Reason For Referral No Information Medications Medication SIG (Take, Route, Frequency, Duration) Notes Start Date End Date Status Suprep Bowel Prep 1 as directed Orally 1 for 1 dose 10/10/2015 Active Escitalopram Oxalate 15 mg 1 tablet Oral ly Once a day Active hydroCHLOROthiazide 12.5 MG 1 capsule Or ally Once a day Active Diovan 160 MG 1 tablet Orally Once a day Active Atorvastatin Calcium 20 MG 1 tablet Oral ly Once a day Active Atenolol 25 MG 1 tablet Orally Once a day Active Aspirin Adult Low Dose 3x per week Active Problems Problem Type SNOMED Code ICD Code Onset Dates Problem Status W/U Status Risk Notes Problem 754164136 Colon cancer screening (Z12.11) Active confirmed Problem 761804051 intermediate current use of aspirin (Z79.82) Active confirmed Plan Of Treatment Future Test Test Name Order Date COLONOSCOPY 10/10/2015 Insurance Providers Payer Name Payer Address Payer Phone Subscriber Number Group Number Insured Name Patient Relationship to Insured Coverage Start Date Coverage End Date MEDICARE OF [place] [address] [place] [address] [id number] LYRIC LINARES Self - patient is the insured [employer] ATT[employer] CLAIMS [address] [place] [address] [id number] LYRIC LINARES Self - patient is the insured Medical (General) History Medical History History ICD Code Denies OK,DM,CVA,Lung disease,renal dise ase Surgical History Surgery Date(Month/Year) tonsillectomy breast biopsy-left
--- OUTSIDE RECORDS SUMMARY | 2025-03-31 10:19 | XMS_ITS | Patient Health Record ---
Author Organization [facility] Address [address] [place] [address] Care Team Providers Care Scrap Baller Name Role Phone a, n Primary Care Provider Idris Valdez MD, Raja Unavailable [phone] Reason For Referral No Information Medications Medication SIG (Take, Route, Frequency, Duration) Notes Start Date End Date Status COVID-19 mRNA Vaccine (Allocadia) 30 MCG/0.3ML as directed Intramuscular Active Immunizations Vaccine Route Administration Date Status Sonia nts Pfizer-Biontech Covid-19 Vaccine IM Intramuscular 08/30/2020 Administered Pfizer-Biontech Covid-19 Vaccine IM Intramuscular 09/19/2020 Administered Scout Armas 10/02/2020 09:08:38 PM > Plan Of Treatment No Information Insurance Providers Payer Name Payer Address Payer Phone Subscriber Number Group Number Insured Name Patient Relationship to Insured Coverage Start Date Coverage End Date Medicare of [place] / [facility] Serv [address] [address] [place] [address] [phone] [id number] Robyn Vargas Self - patient is the insured Blue Cross and Blue [employer] [facility] [address] [place] [address] [id number] Robyn Vargas Self - patient is the insured
--- OUTSIDE RECORDS SUMMARY | 2025-03-31 10:19 | XMS_ITS | Patient Health Record ---
Author Organization [facility] Lex[facility] Sand[facility] Address [address] [facility] [place] [address] Care Team Providers Care Solar Sales Ambassador Name Role Phone Christine Gordon NP Primary Care Provider Scarlet Acharya Unavailable [phone] Allergies Allergen (clinical drug ingredient) Drug/Non Drug Allergy documented on EMR Reaction Allergy Type Onset Date Status sulfamethoxazole / trimethoprim Bactrim Unknown Drug Allergy Active Reason For Referral No Information Medications Medication SIG (Take, Route, Frequency, Duration) Notes Start Date End Date Status Atorvastatin Calcium 40 MG 1 tablet Oral ly Once a day; Duration: 30 day(s) Active LORazepam Active Lisinopril 20 MG 1 tablet Orally Once a day; Duration: 30 day(s) Active Escitalopram Oxalate 20 MG 1 tablet Oral ly Once a day; Duration: 30 day(s) Active Lisinopril 20 MG 1 tablet Orally Once a day; Duration: 30 day(s) Active Atorvastatin Calcium 40 MG 1 tablet Oral ly Once a day; Duration: 30 day(s) Active Atenolol 25 MG 1 tablet Orally Once a day; Duration: 30 day(s) Active hydroCHLOROthiazide 25 MG 1 tablet in th e morning Orally Once a day; Duration: 30 day(s) Active Escitalopram Oxalate 20 MG 1 tablet Oral ly Once a day; Duration: 30 day(s) Active hydroCHLOROthiazide 25 MG 1 tablet in th e morning Orally Once a day; Duration: 30 day(s) Active LORazepam PRN Active Atenolol 25 MG 1 tablet Orally Once a day; Duration: 30 day(s) Active Social History Tobacco Use: Social History Observation Description Date Details (start date - stop date) Former Smoker NA - NA Tobacco Use/Smoking Question Answer Notes Are you a: former smoker Additional Findings: Tobacco Non-User Current no n-smoker Alcohol Screen Question Answer Notes Did you have a drink contain ing alcohol in the past year? Yes How often did you have a dri nk containing alcohol in the past year? 2 to 3 times a week (3 points) Points 3 Interpretation Positive Tobacco use other than smoking: Question Answer Notes Are you an other tobacco user? No Problems Problem Type SNOMED Code ICD Code Onset Dates Problem Status W/U Status Risk Notes Problem Acquired hammer toe of right foot (2058631301328060 ) Hammer toe of right foot (M20.41) Active confirmed Problem Localized, primary osteoarthritis of the ankle and/or foot (366305574) Osteoarthritis of right ankle and foot (M19.071) Active confirmed Plan Of Treatment Pending Test Test Name Order Date X ray : Foot, right 3V 02/19/2022 Insurance Providers Payer Name Payer Address Payer Phone Subscriber Number Group Number Insured Name Patient Relationship to Insured Coverage Start Date Coverage End Date Medicare National Govt Svcs Inc [address] [facility] [address] [id number] Robyn Vargas Self - patient is the insured [facility] [address] [place] [address] [id number] Robyn Vargas Self - patient is the insured Medical (General) History Medical History History ICD Code Cholesterol Depression High blood pressure Measles Mumps Chicken pox Surgical History Surgery Date(Month/Year) tonsillectomy 1957 breast biopsy x2 1997
== END 2025-03-31 10:10 | disposition home or self-care (01) ==
LOC: HO.HPS 09:33
PROVIDERS: PCP Nurse Practitioner Primary Care; Visit Provider Internal Medicine Pulmonary Disease
DX: Z91.09 Other allergy status, other than to drugs and biological substances (principal); J84.9 Interstitial pulmonary disease, unspecified; R05.3 Chronic cough
CPT/HCPCS: 99204

== ENCOUNTER 2025-04-12 11:21 | Outpatient (REF) | payer MEDICARE, SELFPAY ==
--- OUTSIDE RECORDS SUMMARY | 2024-12-08 05:05 | XMS_ITS | Continuity of Care Document ---
Author Organization [facility] Address [address] [place] [address] Phone Care Team Providers Care Chip Unloader Name Role Phone Sachin NEWMAN, Check Unavailable Unavailable Allergies, Adverse Reactions, Alerts Substance Reaction Status Criticality Sulfa (Sulfonamide Antibiotics) Active No Information Medications Medication Instructions Dosage Effective Dates (start - stop) Status Comments hydrochlorothiazide 25 mg tablet take 1 tablet by oral route every day 25 MG - Active atorvastatin 40 mg tablet take 1 tablet by oral route every day 40 MG - Active escitalopram 20 mg tablet take 1 tablet by oral route every day 20 MG - Active atenolol 25 mg tablet take 1 tablet by oral route every day 25 MG - Active Procedures Procedure Date Betamethasone Acetate 4mg & Sodium Phosp hate 3mg Inject tndn sheath/lgmn, Single 025 Office/outpatient visit,est, mod 2024 Betamethasone Acetate 4mg & Sodium Phosp hate 3mg Inject tndn sheath/lgmn, Single 024 Office/outpatient visit,new, mod 2023 X-ray exam of finger(s), 2+ views Inject tndn sheath/lgmn, Single 024 Drain/inject major joint or bursa X-ray exam Lower spine, min 4 views Office/outpatient visit,est, mod 2023 Depomedrol 40mg Depomedrol 40mg Drain/inject major joint or bursa X Ray Exam Hip Unilateral W/ Pelvis If P erf, 2-3 Views Office/outpatient visit,est, Low 2022 Office/outpatient visit,est, mod 2021 Office/outpatient visit,est, mod 2021 Office/outpatient visit,est, mod 2021 Office/outpatient visit,est, mod 2020 Office/outpatient visit,est, mod 2020 Office/outpatient visit,est, high Translaminar Cervical/Thoracic Methylprednisolone 80 Mg Depomedrol 40mg Office/outpatient visit,est, mod 2020 Office/outpatient visit,est, mod 2020 Office/outpatient visit,est, mod 2019 Mechanical traction therapy ELECTRICAL STIMULATION (UNATTENDED) Mechanical traction therapy ELECTRICAL STIMULATION (UNATTENDED) PT EVAL LOW COMPLEX 20 MIN Therapeutic activities Direct 0 ELECTRICAL STIMULATION (UNATTENDED) X-ray exam of neck spine, complete [place] [facility] [place] Advance Directives Directive Yes / No Effective Date File Name No Information Encounters Encounter Description Practice Location Reason(s) For Visit Diagnoses Date Provider Providers Copied on Encounter Office/outpa tient visit,est, [facility], [address], [place], [place], [id number], tel:[phone] [facility] [address] right hand pain (chief complaint) Body mass index [BMI] 27.0-27.9, adultTrigger finger, right ring finger 5 Sachin Ashley. [address], [place], [place], [address] , [place]. tel:[phone] Referring Provider: Dion Stephenson MD C, [address], [place], [address] . tel:[phone] Office/outpa tient visit,[facility], [address], [place], [place], [id number], [place] tel:[phone] right hand pain (chief complaint) Trigger finger, right ring finger Dec-0 4 Sachin Ashley. [address], [place], [place], [address] , [place]. tel:[phone] Referring Provider: Dion Tony, [address], [place], [address] . tel:[phone] Office/outpa tient visit,[facility], [address], [place], [place], [address], [place] tel:[phone] [facility] right hand pain (chief complaint) lumbar spine (chief complaint) Right hand painLumbar painTrigger finger, right ring fingerTrochanter ic bursitis of right hip Oct-2 4 Favio Tony Alexandr. [address], [place], [place], [address] , [place]. tel:[phone] Referring Provider: Alexandr Tony, [address], [place], [address] . tel:[phone] Office/outpa tient visit,[facility], [address], [place], [place], [address], [place] tel:[phone] [facility] - Walk-in right hip pain (chief complaint) Acute right hip painGreater trochanteric bursitis of right hip Jun- 3 Favio Tony Alexandr. [address], [place], [place], [address] , [place]. tel:[phone] Referring Provider: Alexandr Tony, [address], [place], [address] . tel:[phone] Office/outpa tient visit,[facility], [address], [place], [place], [address], [place] tel:[phone] [facility] [address] cervical spine (chief complaint) Cervical stenosis of spineRadiculopat hy, cervical region 2 Ganesh Easley. [address], [place], [place], [address] , [place]. tel:[phone] Referring Provider: Tomi Reina MD, [address], [place], [address] . tel:[phone] Office/outpa tient visit,[facility], [facility], [address], [place], [place], [address], [place] tel:[phone] [facility] [address] cervical spine (chief complaint) Cervical stenosis of spineRadiculopat hy, cervical region 2 Ganesh Pattersonia. [address], [place], [place], [address] , [place]. tel:[phone] Referring Provider: Tracee RAMOS, [address], [place], [address] . tel:[phone] Office/outpa tient visit,[facility], [facility], [address], [place], [place], [address], [place] tel:[phone] [facility] [address] cervical spine (chief complaint) Cervical stenosis of spineRadiculopat hy, cervical region 2 Ganesh Easley. [address], [place], [place], [address] , [place]. [phone] Referring Provider: Tracee RAMOS, [address], [place], [address] . tel:[phone] Office/outpa tient visit,est, [facility], [address], [place], [place], [address], [place] tel:[phone] cervical spine (chief complaint) Cervical stenosis of spineHerniated nucleus pulposus, C4-5Herniated nucleus pulposus, C5-6Herniated nucleus pulposus, C6-7Spondylolist hesis, cervical regionConnective tissue and disc stenosis of intervertebral foramina of cervical regionRight arm numbness 1 Shay Gonzalez. [address], [place], [place], [address] , [place]. [phone] Referring Provider: Carlos Day MD, [address], [place], [address] . tel:[phone] Office/outpa tient visit,[facility], [address], [place], [address], [place] tel:[phone] [facility] 204 cervical spine (chief complaint) Radiculopathy, cervical regionCervical stenosis of spineBody mass index (BMI) 27.0-27.9, adult 1 Nuno Krishna. [address], [place], [place], [address] , [place]. [phone] Referring Provider: Tomi Reina MD, [address], [place], [address] . tel:[phone] Office/outpa tient visit,[facility], [address], [place], [address], [place] tel:[phone] [facility] 400 cervical spine (chief complaint) Cervical stenosis of spineRadiculopat hy, cervical regionHerniated nucleus pulposus, C4-5Herniated nucleus pulposus, C5-6Herniated nucleus pulposus, C6-7Connective tissue and disc stenosis of intervertebral foramina of cervical regionRight arm numbness 1 Shay Gonzalez. [address], [place], [place], [address] , [place]. tel:[phone] Referring Provider: Daquan Koo, [address], [place], [address] . tel:[phone] [facility], [address], [place], [place], [address], [place] tel:[phone] [facility] [address] Body mass index (BMI) 27.0-27.9, adult 1 Nuno Krishna. [address], [place], [place], [address] , [place]. tel: [phone] Referring Provider: Tomi Reina MD, [address], [place], [address] . tel:[phone] Office/outpa tient visit,[facility], [address], [place], [place], [address], [place] tel:[phone] [facility] [address] cervical spine (chief complaint) Body mass index (BMI) 27.0-27.9, adultRadiculopat hy, cervical regionCervical stenosis of spine 1 Nuno Krishna. [address], [place], [place], [address] , [place]. tel: [phone] Referring Provider: Daquan Koo, [address], [place], [address] . tel:[phone] Office/outpa tient visit,[facility], [address], [place], [place], [address], [place] tel:[phone] [facility] [address] cervical spine (chief complaint) Neck painBody mass index (BMI) 27.0-27.9, adultRadiculopat hy, cervical region 0 Merced Butt. [address], [place], [place], [address] , [place]. tel:[phone] Referring Provider: Daquan Koo, [address], [place], [address] . tel:[phone] [facility], [address], [place], [place], [address], tel:[phone] [facility] [address] Radiculopathy, cervical region 4-202 0 Guettler DPT Rani. [address], [place], [facility], . tel:[phone] Referring Provider: Carlos Day MD, [address], [place], [address] . tel:[phone] [facility], [address], [place], [place], [address], tel:[phone] [facility] [address] Radiculopathy, cervical region 1 0 Guettler DPT Rani. [address] [facility], [place], [facility], . tel:[phone] Referring Provider: Carlos Day MD, [address], [place], [address] . tel:[phone] [facility], [address], [place], [place], [address], tel:[phone] [facility] [address] Cervical radiculopathy 9-202 0 Guettler DPT Rani. [address] [facility], [place], [facility], . tel:[phone] Referring Provider: Carlos Day MD, [address], [place], [address] . tel:[phone] Office/outpa tient visit,[facility], [address], [place], [place], [address], tel:[phone] [facility] - Walk-in cervical spine (chief complaint) Body mass index (BMI) 27.0-27.9, adultNeck painCervical radiculopathy Nov-3 0 0 Miriam Ortiz. [address], [place], [place], [address] , [place]. tel:[phone] Referring Provider: Angel Tony, [address], [place], [address] . tel:[phone] Family History Family Member Type Diagnosis Age At Onset No Information Payers Payer name Insurance type Covered constitution party ID Authoriza tion(s) MEDICARE [id number] BCBS PPO OUT OF STATE [id number] Social History Type Description Quantity Date Captured Comments Alcohol Use Details Caffeine Use Details Unknown Tobacco Use Status No Information Smoking Status Former smoker Non-Smoking Tobacco Use Details : No Details Available : No Details Available Sex Female Vital Signs Date / Time: Height Weight BMI Pulse Rate Blood Pressure Temperature Respiratory Rate Body Surface Area Head Circumference Head Circ. Percentile Wt./Beto. Percentile BMI percentile Pulse Ox Inhaled Ox 9:33 AM 62.00 in 68.039 kg (150.00 lbs) 27.4 4 kg/m eter (2) 1.73 meter(2) Chief Complaint And Reason For Visit From encounter dated '12/08/2024 09:05'. right hand pain (chief complaint). Description: Robyn Vargas is a 73 year old female. She presents with pain on the right side. The patient is present for recurrent right ring trigger finger. She was last given a trigger finger injection on 07/11/24 and she reports temporary relief from that injection. She is interested in discussing surgery as well as a trigger finger injection. She states thatthe symptoms have been chronic non-traumatic. The symptoms occur intermittently. Currently the patient states that the symptoms are mild-moderate. Reason For Referral Reason For Referral No Information Plan Of Treatment Date Type Action Status Goal Lifestyle education regardin g diet completed Goal Dietary manageme nt education, guidance, and counseling completed Referral Ordered: X-ray exam of finger(s), 2+ views RT Ring finger ordered Referral Ordered: X-ray exam Lower spine, min 4 views spine, lumbar ordered Referral Ordered: X Ray Exam Hip Unilateral W/ Pelvis If Perf, 2-3 Views RT ordered Referral Ordered: MRI of cervical spine W/o Cntrst ordered Referral Ordered: X-ray exam of neck spine, complete ordered Patient Education Hip Pain: Care Instruct ions completed Patient Education Neck: Exercises complet ed Patient Education Neck Pain: Care Instruc tions completed Patient Education A Healthy Lifestyle: Ca re Instructions completed Patient Education Shoulder Blade: Exercis es completed Patient Education Neck Pain: Care Instruc tions completed History Of Present Illness Encounter Date Complaint History Of Prese nt Illness right hand pain Robyn Vargas i s a 73 year old female. She presents with pain on the right side. The patient is present for recurrent right ring trigger finger. She was last given a trigger finger injection on 07/11/24 and she reports temporary relief from that injection. She is interested in discussing surgery as well as a trigger finger injection. She states that the symptoms have been chronic non-traumatic. The symptoms occur intermittently. Currently the patient states that the symptoms are mild-moderate. right hand pain Robyn Vargas i s a 73 year old female. Patient is present with RT RF pain ongoing since 2019. Patient received 2 injections one in [place] and one with Alexandr HUNTLEY which provided good relief for about 8 months. Patient is RHD. She plays Golf and gardens She presents with pain on the right side. right hand pain Robyn Vargas i s a 72 year old female. She presents with pain on the right side. Patient reports a history of trigger finger in her right ring finger. She states she an injection up [place] in April 2022 that she has been benefiting from since. She denies any recent injury, falls or trauma. She would like to know if another injection could help. The symptoms occur constantly. The problem is fluctuating. Currently the patient states that the symptoms are mild-moderate. The pain is described as aching, deep, discomforting and dull. The patient is experiencing pain in the following location: 2nd digit on the right side. She rates her current pain as 6/10. The symptoms are aggravated by daily activities. In addition to right hand pain the patient is also experiencing locking. lumbar spine Robyn Vargas i s a 72 year old female. She presents with pain. Patient reports on and off pain for years. She denies any injury falls or trauma. She presents today for treatment options. The symptoms occur constantly. The problem is fluctuating. Currently the patient states that the symptoms are mild-moderate. The pain is described as aching, deep and dull. The patient is experiencing pain in the following locations: lower back and right flank. She rates her current pain as 7/10. The pain radiates to the lower extremities on the right side. The symptoms are aggravated by daily activities. In addition to lumbar spine the patient is also experiencing decreased mobility. right hip pain Ms Vargas is a 72 year old female who complains of right hip pain. She presents with pain on the right side. She states that the symptoms have been acute non-traumatic and began 6 weeks ago. Patient complains of onset of right lateral hip and thigh pain beginning about 6 week ago. She denies trauma or injury to the right hip. She denies prior history of right hip pain but notes prior treatment for left hip trochanteric bursitis. She has tried topical agents and massaging the area. Sleep is disturbed due to pain with lying on the right side. Patient reports difficulty lifting the right leg due to pain. The symptoms occur intermittently. Currently the patient states that the symptoms are moderate. The pain is described as discomforting and localized. She rates her current pain as 6/10. The symptoms are aggravated by daily activities, movement, driving, walking, standing, repetitive activities and sleeping on the affected side. Robyn states that the symptoms are relieved by no specific activity. In addition to right hip pain the patient is also experiencing tenderness. cervical spine Robyn Vargas i s a 71 year old female. She presents with pain. She states that the symptoms have been chronic non-traumatic. Patient is prescribed Tramadol which she stopped taking back in January. The problem is better. She rates her current pain as 0/10. cervical spine Robyn Vargas i s a 70 year old female. She presents with pain. Patient is prescribed Tramadol which provides 100% relief. Patient denies new injury or falling. The problem is stable. Currently the patient states that the symptoms are mild. The symptoms occur continuously. She rates her current pain as 1/10. cervical spine Robyn Vargas i s a 70 year old female. Patient is prescribed Tramadol. She is present for Tramadol refill. She presents with pain. The problem is stable. Currently the patient states that the symptoms are moderate-severe. The pain is described as aching. The symptoms occur continuously. She rates her current pain as 6/10. The symptoms are aggravated by daily activities. Robyn states that the symptoms are relieved by rest. cervical spine Robyn Vargas i s a 69 year old female. She presents with pain. Currently the patient states that the symptoms are mild. The pain is described as aching. The symptoms occur continuously. She rates her worst pain as 1/10. She rates her current pain as 0/10. The pain does not radiate. The symptoms are aggravated by daily activities. Robyn states that the symptoms are relieved by rest. She denies having any associated symptoms. cervical spine Ms Vargas is a 69 year old female who complains of cervical spine. She presents with pain. Patient is s/p Cervical epidural steroid injection, which gave her 100% relief She states that the symptoms have been chronic non-traumatic. The symptoms occur intermittently. The problem is improving. Currently the patient states that the symptoms are variable. The symptoms occur intermittently. The patient is experiencing pain in the following location: neck on the right and left side equally. She rates her current pain as 0/10. cervical spine Robyn Vargas i s a 69 year old female. She presents with pain. The problem is improving. Currently the patient states that the symptoms are moderate-severe. The pain is described as aching. The symptoms occur continuously. The patient is experiencing pain in the following location: neck. She rates her worst pain as 7/10. She rates her current pain as 0/10. The pain does not radiate. Robyn states that the symptoms are relieved by rest and injections. In addition to cervical spine the patient is also experiencing numbness and tingling RUE and tightness. She has been treated with a interlaminar epidural to the C7-T1. She notes findings of 70 percent relief. cervical spine Ms Vargas is a 69 year old female who complains of cervical spine. She presents with pain. Patient was referred By Dr. Blackwood. She has tried 2 rounds of prednisone, diclofenac and Tylenol extra strength with no major improvement. She states that the symptoms have been acute non-traumatic and began on 06/22/2020. Patient developed pain while playing golf in the right scapular region. The problem is fluctuating. Currently the patient states that the symptoms are mild-moderate. The pain is described as dull. The symptoms occur continuously. She rates her worst pain as 7/10. She rates her current pain as 5/10. The pain does not radiate. The symptoms are aggravated by daily activities. Robyn states that the symptoms are relieved by exercise. In addition to cervical spine the patient is also experiencing numbness to the right hand ulnar digits. cervical spine Robyn Vargas i s a 69 year old female. She presents with pain. She states that the symptoms have been acute traumatic and began on 06/22/2020. She indicates the injury occurred while playing golf. Robyn states that the symptoms began as the result of a twisting movement. The symptoms occur constantly. She was evaluated by Angel Pineda PA-C and physical therapy was ordered. The therapy has helped her neck pain but has caused increased right upper extremity symptoms. She took a medrol dose pack which helped but then her pain returned. She is taking Advil daily. The problem is worse. Currently the patient states that the symptoms are moderate. The pain is described as electrical and throbbing. The symptoms occur continuously. The patient is experiencing pain in the following location: upper extremity on the right side. She rates her current pain as 7/10. The pain radiates to the upper extremity on the right side. The symptoms are aggravated by daily activities. Robyn states that the symptoms are relieved by no specific activity. In addition to cervical spine the patient is also experiencing tingling. The patient has had a previous x-ray. Prior NSAIDs include prednisone dosepak and advil. Patient has had previous therapy. cervical spine Ms Vargas is a 69 year old female who complains of cervical spine. She presents with spasms, pain and numbness on the right side. She states that the symptoms have been acute traumatic and began on 06/22/2020. Robyn states that the symptoms began as the result of a twisting movement. Patient complains of right parascapular and RUE pain while playing golf 10 days ago. She denies history of neck injury or pain. Patient has applied ice and heat and is taking NSAIDs for pain. The symptoms occur intermittently. Currently the patient states that the symptoms are moderate-severe. The pain is described as sharp, shooting and stabbing. The symptoms occur continuously. The patient is experiencing pain in the following locations: parascapular area and upper extremity on the right side. She rates her current pain as 8/10. The pain radiates from the scapula on the right side then to the lateral upper arm on the right side. The patient reports numbness in the lateral upper arm on the right side. The symptoms are aggravated by daily activities, lateral bending, lifting and twisting. Robyn states that the symptoms are relieved by no specific activity. In addition to cervical spine the patient is also experiencing spasms. Functional Status Date Functional Assessmen t No Information Instructions Date Instruction Additional Infor amanda I explained to the p atient the nature of the trigger digit or stenosing tenosynovitis. After discussion of treatment options the patient wished to proceed with a RIGHT RING FINGER corticosteroid tendon sheath injection to help alleviate the symptoms. Risks, benefits, and alternatives to steroid injection into the palm were discussed with the patient and the patient wishes to proceed. After the finger was prepped with alcohol, a syringe with 2% lidocaine and 1 cc of celestone was injected into the tendon sheath without any complications. Patient instructed that the steroid may also increase the patient's blood sugar. Patient instructed that there may be increased soreness to the injected area for several days before the steroid takes effect. Patient will watch out for significant swelling and redness that may be a sign of infection. I will see the patient back PRN Related to Trigger finger, right ring finger Lifestyle education regarding di et Related to Body mass index [BMI] 27.0-27.9, adult I explained to the p atient the nature of the trigger digit or stenosing tenosynovitis. After discussion of treatment options the patient wished to proceed with a RIGHT RING FINGER corticosteroid tendon sheath injection to help alleviate the symptoms. Risks, benefits, and alternatives to steroid injection into the palm were discussed with the patient and the patient wishes to proceed. After the finger was prepped with alcohol, a syringe with 2% lidocaine and 1 cc of celestone was injected into the tendon sheath without any complications. Patient instructed that the steroid may also increase the patient's blood sugar. Patient instructed that there may be increased soreness to the injected area for several days before the steroid takes effect. Patient will watch out for significant swelling and redness that may be a sign of infection. I will see the patient back in 6 weeks, or sooner if needed, for repeat evaluation. If it is still symptomatic, I would recommend an A1 radny release at that time. Related to Trigger finger, right ring finger X-rays of both the r ight hand and lumbar spine were reviewed with the patient. She has done well with injections in both sites and so would like to proceed with ring finger trigger injection and trochanteric injection.Using sterile technique the flexor tendon of the right ring finger was injected with a combination of 1/2 cc of betamethasone and 1/2 cc of lidocaine and half percent. There were no complications and I felt the fluid flow along the tendon sheath during the injection. There were no complications. The site was then cleaned again and a sterile bandage was applied after the needle was withdrawn. In the left lateral decubitus position the area of discomfort over the greater trochanter was identified by palpation. The site was prepped with Betadine. A refrigerant spray proceeded injection through a 22-gauge needle a mixture of 1 cc of Depo-Medrol 40 mg, 1 cc of Marcaine and 1 cc of lidocaine. There were no complications with the injection procedure and after the needle was withdrawn the site was cleaned again with alcohol wipe before sterile bandage was applied. She will ice the injection areas today. She has seen Dr. Mack in the past but we will hold off on visiting with him pending her outcome with today's injection. She will be returning to [facility] for the summer in another month. Follow-up will be as needed. Related to Trigger finger, right ring finger X-rays were reviewed with the patient. Her exam indicates likely trochanteric bursitis. We talked about stretching exercise massage and injection. She would like to proceed with an injection. In the left lateral decubitus position area of tenderness over the greater trochanter was identified by palpation. The skin was prepped with Betadine. A refrigerant spray proceeded injection through a 3 inch spinal needle consisting of 1 cc of lidocaine half percent, 1 cc of Marcaine half percent and 1 cc of Depo-Medrol 40 mg. The majority of the fluid was injected over the greater trochanter. A small amount was injected superiorly over an area of tenderness along the ITB as well. No complications were encountered and after the needles were withdrawn sites were cleaned with alcohol wipe before sterile bandages were applied. She will ice the areas today. She did note some improvement when she was walking to the checkout area. Follow-up will be if needed. Related to Greater trochanteric bursitis of right hip 69-year-old female w ho presents with chronic bilateral neck pain with right upper extremity C7 radiculopathy that completely resolved with 1-time KIRSTIN. Referred by Dr. Blackwood. Patient continues to have pain refractory to multiple conservative measures including PT/HEP for at least 6 weeks in the past 6 months, NSAID's, and pain medication. cervical MRI demonstrates multilevel central stenosis with multilevel neural foraminal stenosis most consistent with her symptoms at right C7-T1 moderate-severe NF stenosisDiscussed multiple treatment options including PT/HEP, NSAIDs, prescription medications, TENS, medical massage and injections if pain returns.08/16/20 KIRSTIN C7/T1 with 80% relief with continued relief, some mild neck pain that is controlled with 1 tab tramadol. Since her last visit, she has not taken tramadol, she uses it sparingly when she plays golf. She says during the month of January while fixing her yard she developed neck pain radiating to scapular region and she rested and subsided. I offered to take gabapentin should symptoms return and a MDP. She will notify us if she would like to proceed with KIRSTIN if pain becomes consistent. Tramadol 50mg 1 tab every once a day as needed #30 w 1 RF, sometimes takes 1/2 tab when playing golfUDS: appropriate for tramadol and citalopram prescribed, +ETOH, counseled Recommend monitor for duration of relief. She weaned off gabapentin 600mg/day after her KIRSTIN. Opiate agreement signed f/u: as needed, when running low on medication or to schedule repeat KIRSTIN Related to Radiculopathy, cervical region 69-year-old female w ho presents with chronic bilateral neck pain with right upper extremity C7 radiculopathy that completely resolved with 1-time KIRSTIN. Referred by Dr. Blackwood. Patient continues to have pain refractory to multiple conservative measures including PT/HEP for at least 6 weeks in the past 6 months, NSAID's, and pain medication. cervical MRI demonstrates multilevel central stenosis with multilevel neural foraminal stenosis most consistent with her symptoms at right C7-T1 moderate-severe NF stenosisDiscussed multiple treatment options including PT/HEP, NSAIDs, prescription medications, TENS, medical massage and injections if pain returns.08/16/20 KIRSTIN C7/T1 with 80% relief with continued relief, some mild neck pain that is controlled with 1 tab tramadol. Since her last visit, she has been managing her pain with gabapentin and ice and heat. She would like a refill of tramadol to allow her to play golf 3-4 times a week. She was prescribed lorazepam for sleep that she takes very sparingly and has been using melatonin instead. She tried sleep 3 not consistent Tramadol 50mg 1 tab every once a day as needed #30 w 1 RF, sometimes takes 1/2 tab when playing golfRecommend monitor for duration of relief. She weaned off gabapentin 600mg/day after her KIRSTIN. Opiate agreement signed f/u: as needed, when running low on medication, patient will return after May 17, 2022 and will need a 7 day supply and a 3 week supply Related to Radiculopathy, cervical region 69-year-old female w ho presents with chronic bilateral neck pain with right upper extremity C7 radiculopathy that completely resolved with 1-time KIRSTIN. Referred by Dr. Blackwood. Patient continues to have pain refractory to multiple conservative measures including PT/HEP for at least 6 weeks in the past 6 months, NSAID's, and pain medication. cervical MRI demonstrates multilevel central stenosis with multilevel neural foraminal stenosis most consistent with her symptoms at right C7-T1 moderate-severe NF stenosisDiscussed multiple treatment options including PT/HEP, NSAIDs, prescription medications, TENS, medical massage and injections if pain returns.08/16/20 KIRSTIN C7/T1 with 80% relief with continued relief, some mild neck pain that is controlled with 1 tab tramadol. Since her last visit, she has been managing her pain with gabapentin and ice and heat. She would like a refill of tramadol to allow her to play golf 3-4 times a week. She was prescribed lorazepam for sleep that she takes very sparingly and has been using melatonin instead.Tramadol 50mg 1 tab every once a day as needed #30 w 1 RFRecommend monitor for duration of relief. She will try to wean her gabapentin 600mg/day. Opiate agreement signed todayf/u: as needed, when running low on medication Related to Radiculopathy, cervical region Neck and right arm p ain with numbness with pt presenting to Dr Blackwood and Dr Reina, who performed an epidural MRI cervical reviewed with images independently reviewed along with reportsPT records reviewedProcedure note reviewedShe could not tolerate PT and traction. However, the epidural provided marked reliefMRI demonstrates HNp and stenosis C4-5, C5-6, C6-7 with spondylolisthesis C4-5Medications reviewed. I will continue neurontin and she trialled weaning this but she is continuing this at night with relief. Decision made to continue thisF/U 3 months Related to Cervical stenosis of spine 69-year-old female w ho presents with chronic bilateral neck pain with right upper extremity C7 radiculopathy that completely resolved with 1-time KIRSTIN. Referred by Dr. Blackwood. Patient continues to have pain refractory to multiple conservative measures including PT/HEP for at least 6 weeks in the past 6 months, NSAID's, and pain medication. cervical MRI demonstrates multilevel central stenosis with multilevel neural foraminal stenosis most consistent with her symptoms at right C7-T1 moderate-severe NF stenosisDiscussed multiple treatment options including PT/HEP, NSAIDs, prescription medications, TENS, medical massage and injections if pain returns.Recommend monitor for duration of relief. She will try to wean her gabapentin 600mg/day.I will f/u with her as needed. Related to Radiculopathy, cervical region Neck and right arm p ain with numbness with pt presenting to Dr Blackwood and Dr Reina, who performed an epidural MRI cervical reviewed with images independently reviewed along with reportsPT records reviewedProcedure note reviewedShe could not tolerate PT and traction. However, the epidural provided marked reliefMRI demonstrates HNp and stenosis C4-5, C5-6, C6-7Medications reviewed. I will continue neurontin and she will trial weaning this Related to Cervical stenosis of spine 69-year-old femalea who presents with chronic bilateral neck pain with right upper extremity C7 radiculopathy that is significantly functionally limiting. Referred by Dr. Blackwood. Patient continues to have pain refractory to multiple conservative measures including PT/HEP for at least 6 weeks in the past 6 months, NSAID's, and pain medication. cervical MRI demonstrates multilevel central stenosis with multilevel neural foraminal stenosis most consistent with her symptoms at right C7-T1 moderate-severe NF stenosisDiscussed multiple treatment options including PT/HEP, NSAIDs, prescription medications, TENS, medical massage and injections.Recommend cervical epidural injection as belowRecommend as tolerated titration increase of her gabapentin up to 300-300-600 mg dailyGiven the patient's symptoms, exam findings and imaging as noted above, I discussed the utility of proceeding with a C7-T1 interlaminar cervical epidural steroid injection under fluoroscopy using an anatomical model. The procedure, as well as its potential risks, benefits, and reasonable alternatives were discussed in detail. Discussed risks of the procedure included but are not limited to bleeding, infection, allergic reaction, nerve damage, hematoma formation, abscess formation, failure of the pain to improve and potential worsening of the pain. Since the patient has failed at least 6 weeks of conservative measures within the past 6 months including OTC pain meds, physical therapy/physician-directed home exercises, it is reasonable to proceed with the above procedure. The patient verbalized understanding to the potential risks, benefits, and reasonable alternatives to the above injection and wishes to proceed. Their response will help to further determine a treatment plan.f/u after above procedure Related to Radiculopathy, cervical region Dietary needs education Related to Body mass index [BMI] 27.0-27.9, adult She had her first ep isode of paracervical and radicular pain right upper extremity 3 to 4 weeks ago with a twisting motion. General conservative measures including anti-inflammatories and physical therapy have not shown adequate improvement. She has persistent radicular symptoms in the C7 distribution right upper extremity. Without adequate improvement MRI of the cervical spine will be obtained. Interventional pain management referral and spine specialty referral will be made thereafter. We discussed general conservative measures. We will repeat prednisone taper followed by the use of diclofenac with advice on appropriate rest and exercise. Related to Radiculopathy, cervical region Dietary needs education Related to Body mass index [BMI] 27.0-27.9, adult 69 year old female w adina complains of cervical spine. She presents with spasms, pain and numbness on the right side. She states that the symptoms have been acute traumatic and began on 06/22/2020. Robyn states that the symptoms began as the result of a twisting movement. Patient complains of right parascapular and RUE pain while playing golf 10 days ago.patient complaining of right trapezial spasm and right upper extremity paresthesias and a C5-6 distribution. Her motor exam demonstrates no evidence of focal weakness. Reflexes are 2+ and symmetric. Spurling phenomenon and [place] are both positive with reference to the right upper extremity. X-rays reviewed demonstrate a kyphosis at C4-5 with marked degenerative changes at C5-C6 C6-7 C7-T1. Recommend Medrol Dosepak 6 day as directed. GI protection discussed. Flexeril 10 mg by mouth twice a day #20. Tramadol 50 mg #20 one every 6 hours for pain control. Physical therapy to include traction range of motion, core strengthening, massage, ice 3 times a week 4 weeks. Patient will follow up with Dr. Day in 4 weeks. Related to Cervical radiculopathy Dietary management e ducation, guidance, and counseling Related to Body mass index [BMI] 27.0-27.9, adult Assessments Type Assessment Date assessment Body mass index [BMI] 27.0-27.9, adult assessment Trigger finger, right ring finge r impression Trigger finger, righ t ring finger.Robyn 73 y/o female presents to the office with a RIGHT RF TF ongoing since 2022, no trauma. Seen at [facility] on 10/21/2023 and received an injection which provided significant improvement X8 months. Discussed repeat injection vs TFR; wants to proceed non-opOn 12/08/2024: Moderate improvement s/p RT RF TF injection received on 07/11/2024, with mild recurrence. Unchanged exam. Requests repeat inj Patient Care Teams Name Effective Dates (start - stop) Status Members No Information
--- NOTE | 2025-04-12 11:29 | PFT_ITS ---
Indication: Cough Spirometry FEV1 to FVC 66% pre bronchodilators and 71% post bronchodilators; FEV1 1.81L; FVC 2.54 L. No significant response to bronchodilators noted. Lung Volumes Total lung capacity 98% predicted; residual volume that is 7% predicted; expiratory reserve volume 19% predicted Diffusion Capacity DLCO 70% predicted Comparisons None Interpretation There appears to be a partially reversible obstructive ventilatory defect suggesting a uncontrolled asthma or mild COPD. No significant response to bronchodilators noted. Significant small airways disease noted. Lung volumes are within normal limits except for decreasing the expiratory reserve volume which could be secondary to an elevated BMI. The patient does have a mild diffusion impairment. Clinical correlation warranted. MTDD
[2025-04-12 12:25] VITALS: PULSE 60; O2SAT 97
--- OUTSIDE RECORDS SUMMARY | 2025-04-12 14:29 | XMS_ITS | Patient Health Record ---
Author Organization [facility] Address [address] [place] [address] Care Team Providers Care Road Repairer Name Role Phone a, n Primary Care Provider Idris Valdez MD, Raja Unavailable [phone] Reason For Referral No Information Medications Medication SIG (Take, Route, Frequency, Duration) Notes Start Date End Date Status COVID-19 mRNA Vaccine (Little Borrowed Dress) 30 MCG/0.3ML as directed Intramuscular Active Immunizations [...] Coverage End Date Medicare of [place] / [facility] Serv [address] [address] [place] [address] [id number] Robyn Vargas Self - patient is the insured Blue [employer] [facility] [address] [place] [address] [id number] Robyn Vargas Self - patient is the insured
--- OUTSIDE RECORDS SUMMARY | 2025-04-12 14:29 | XMS_ITS | Patient Health Record ---
Author Organization [facility] Lexie Sandoval Address [address] [facility] [place] [address] Care Team Providers Care Corporate Compliance Manager Name Role Phone Christine Gordon NP Primary Care Provider Scarlet Acharya Unavailable [phone] Allergies Allergen (clinical drug ingredient) Drug/Non Drug [...] Problem Acquired hammer toe of right foot ([id number] ) Hammer toe of right foot (M20.41) Active confirmed Problem Localized, primary osteoarthritis of the ankle and/or foot (276497517) Osteoarthritis of right ankle and foot (M19.071) Active confirmed Plan Of Treatment Pending Test Test Name Order Date X ray : Foot, right 3V 02/19/2022 Insurance Providers Payer Name Payer Address Payer Phone Subscriber Number Group Number Insured Name Patient Relationship to Insured Coverage Start Date Coverage End Date Medicare National Govt Svcs Inc [address] [facility] [place] [address] [id number] Robyn Vargas Self - patient is the insured [facility] [address] [place] [address] [id number] Robyn Vargas Self - patient is the insured Medical (General) History Medical History History ICD Code Cholesterol Depression High blood pressure Measles Mumps Chicken pox Surgical History Surgery Date(Month/Year) tonsillectomy 1957 breast biopsy x2 1997
--- OUTSIDE RECORDS SUMMARY | 2025-04-12 14:29 | XMS_ITS | Encounter Summary ---
Author Organization [facility] Address [address] [place] [address] Phone Care Team Providers Care Bookkeeping Manager Name Role Phone Heather Haynes SUBWAY TRAIN OPERATOR Unavailable [phone] Rod Olivia MACHINE HEEL BUILDER Primary Care Provider Encounter Details Date Type Department Care Team (Late st Contact Info) Description 04/05/2025 Orders Only [facility] Medicine [address] [place] [address] Provider, MD Raulito [address] [place] [address] Social History Tobacco Use Types Packs/Day Years Used Date Smoking Tobacco: Never Smokeless Tobacco: Never Alcohol Use Standard Drinks/Week Comments Yes 2 [...] your housing situation today? I have richard oseguera 12/28/2020 How many times have you move [...] Not on file Not o n file documented as of this encounter Plan of Treatment Upcoming Encounters Date Type Department Care Team (Late st Contact Info) Description 04/20/2025 1:30 PM EDT Office Visit [facility] [address] [place] [address] Rod Olivia CNP [address] [place] [address], [address] [place] [address] [email or web address] documented as of this encounter Procedures Procedure Name Priority Date/Time Associated Diagnosis Comments OUTSIDE LAB Routine 03/31/2025 2:16 PM EDT documented in this encounter Results * Outside Lab (03/31/2025 2:16 PM EDT) us Historical Provider LAB BLOOD ORDERABLES Bing l Result documented in this encounter Visit Diagnoses Not on filedocumented in this encounter Additional Health Concerns Assessment Noted Time PHQ-2 Depression Total Score: 0 04/14/20 24 11:03 AM EDT documented as of this encounter Care Teams Bookkeeping Manager Relationship Specialty Start Date End Date Rod Olivia CNP [address] [place] [address], [address] [place] [address] [email or web address] PCP - General Family Medicine 08/25/23 Heather Haynes NP [address] [place] [address] Family Medicine 02/17/20 documented as of this encounter Additional Source Comments The information contained in this document represents components of the legal health record. It is not the complete legal health record.[facility]
--- OUTSIDE RECORDS SUMMARY | 2025-04-12 14:29 | XMS_ITS | Encounter Summary ---
Author Organization [facility] Address [address] [facility] [address] [place] [address] Phone Care Team Providers Care Biztalk Architect Name Role Phone Heather Haynes FOX RAISER Unavailable [phone] Rod Olivia RAIL TRANSPORTATION OPERATOR Primary Care Provider Encounter Details Date Type Department Care Team (Late st Contact Info) Description 04/07/2025 Orders Only [facility] Medicine [address] [place] [address] Provider, MD Raulito [address] [place] [address] Social History Tobacco Use Types Packs/Day [...] PM EDT Office Visit [facility] [place] [facility] [address] [place] [address] Rod Olivia CNP [address] [place] [address], [address] [place] [address] [email or web address] documented as of this encounter Procedures Procedure Name Priority Date/Time Associated Diagnosis Comments OUTSIDE LAB Routine 03/31/2025 11:11 AM EDT documented in this encounter Results * Outside Lab (03/31/2025 11:11 AM EDT) us Historical Provider LAB BLOOD ORDERABLES Bing l Result documented in this encounter Visit Diagnoses Not on filedocumented in this encounter Additional Health Concerns Assessment Noted Time PHQ-2 Depression Total Score: 0 04/14/20 24 11:03 AM EDT documented as of this encounter Care Teams Biztalk Architect Relationship Specialty Start Date End Date Rod Olivia CNP [address] [place] [address], [address] [place] [address] [email or web address] PCP - General Family Medicine 08/25/23 Heather Haynes NP [address] [place] [address] Family Medicine 02/17/20 documented as of this encounter Additional Source Comments The information contained in this document represents components of the legal health record. It is not the complete legal health record.[facility]
--- OUTSIDE RECORDS SUMMARY | 2025-04-12 14:29 | XMS_ITS | Patient Health Record ---
Author Organization [facility] Address [address] [place] [address] Care Team Providers Care Radio Producer Name Role Phone Heidi SIMMONS, Christine Primary Care Provider Praveen Walker Jr Unavailable [phone] Allergies Allergen (clinical drug ingredient) Drug/Non Drug [...] Problem Status W/U Status Risk Notes Problem [id number] Colon cancer screening (Z12.11) Active confirmed Problem [id number] [facility] current use of aspirin (Z79.82) Active confirmed Plan Of Treatment Future Test Test Name Order Date COLONOSCOPY 10/10/2015 Insurance Providers Payer Name Payer Address Payer Phone Subscriber Number Group Number Insured Name Patient Relationship to Insured Coverage Start Date Coverage End Date MEDICARE OF [place] [address] [place] [address] [id number] LYRIC LINARES Self - patient is the insured [employer] [address] [place] [address] [phone] [id number] LYRIC LINARES Self - patient is the insured Medical (General) History Medical History History ICD Code Denies [place],DM,CVA,Lung disease,renal dise ase Surgical History Surgery Date(Month/Year) tonsillectomy breast biopsy-left
--- OUTSIDE RECORDS SUMMARY | 2025-04-12 14:29 | XMS_ITS | Clinical Summary ---
Author Organization [facility] Address [address] [place] [address] Phone Care Team Providers Care Quality Systems Technician Name Role Phone Heather Haynes ACCREDITED LEGAL SECRETARY Unavailable [phone] Rod Olivia ENDOCRINOLOGY SPECIALIST Primary Care Provider Allergies Active Allergy Reactions Criticality Noted Date Comments Chemical Allergens Rash Low 04/14/2024 PPD hair dye Sulfa (Sulfonamide Antibiotics) Rash Low 11/01 Medications atorvastatin (LIPITOR) 40 MG tabletIndications: Mixed hyperlipidemia Take 1 tablet (40 mg total) by mouth every morning. 90 tablet 3 04/14/20 24 Active hydroCHLOROthiazid e 25 MG tabletIndications: Essential hypertension Take 1 tablet (25 mg total) by mouth every morning. 90 tablet 3 04/14/20 24 Active lisinopril (PRINIVIL,ZESTRIL) 20 MG tabletIndications: Essential hypertension Take 1 tablet (20 mg total) by mouth every morning. 90 tablet 3 04/14/20 24 Active LORazepam (ATIVAN) 0.5 MG tabletIndications: Primary insomnia Take 1-2 tablets (0.5-1 mg total) by mouth nightly at bedtime as needed. 60 tablet 1 04/14/20 24 Active escitalopram oxalate (LEXAPRO) 20 MG tabletIndications: Anxiety TAKE 1 TABLET DAILY 90 tablet 3 04/04/20 25 Active atenolol (TENORMIN) 25 MG tabletIndications: Essential hypertension TAKE 1 TABLET DAILY FOR 25 DAYS 90 tablet 3 04/04/20 25 Active atenolol (TENORMIN) 25 MG tabletIndications: Essential hypertension Take 1 tablet (25 mg total) by mouth daily for 25 days. 90 tablet 3 01/05/20 24 025 Discontinued escitalopram oxalate (LEXAPRO) 20 MG tabletIndications: Anxiety Take 1 tablet (20 mg total) by mouth daily. 90 tablet 3 01/05/20 24 025 Discontinued Active Problems Problem Noted Date Diagnosed Date Depression 03/04/2023 03/04/2023 History of squamous cell carcinoma of skin 02/26 Achilles tendinitis of left lower extremity 02/01 Osteopenia determined by x-ray 01/19/2019 Anxiety 11/10/2017 Mixed hyperlipidemia 11/10/2017 Essential hypertension 11/10/2017 Primary insomnia 11/10/2017 Encounters Date Type Department Care Team Description 04/07/2025 Orders Only [address] [place] [address] ProviderRaulito MD 04/05/2025 Orders Only [address] [place] [address] ProviderRaulito MD 03/31/[address] [place] [address] Rod Olivia CNP Medication Refill 03/09/2025 9:25 AM EDT - 03/09/2025 11:59 PM EDT Hospital Encounter [facility] Laboratory [address] [place] [address] Rod Olivia CNP Discharge Disposition: Home or Self Care 01/12/2025 9:30 AM EDT Office Visit [address] [place] [address] Rod Olivia CNP Essential hypertension (Primary Dx); [...] 04/20/2025 1:30 PM EDT Office Visit [facility] [employer] [facility] [address] [place] [address] Rod Olivia, ENDOCRINOLOGY SPECIALIST [address] [facility], [address] [place] [address] Health Maintenance Due Date Last Done Comments COLOGUARD 12/17/1995 FIT TEST 12/17/1995 FOBT 12/17/1995 SIGMOIDOSCOPY 12/17/1995 VIRTUAL COLONOSCOPY 12/17/1995 ZOSTER VACCINES (2 of 3) 06/07/2013 04/12/2013 FOLLOW UP BONE DENSITY TESTING 04/15/2021 04/15/2019, 10/17/2015 INFLUENZA VACCINE (#1) 2025 , 05/05/2022, 05/04/2020, Additional history exists COVID-19 VACCINE ( season) 2025 12/03/2021, 06/25/2021, 09/19/2020, Additional history exists DEPRESSION [...] OUTSIDE LAB Routine 03/31/2025 2:16 PM EDT OUTSIDE LAB Routine 03/31/2025 11:11 AM EDT COMPREHENSIVE METABOLIC PANEL Routine 03/09/2025 9:24 AM [...] EDT Routine general medical examination at a health care facility BD DXA SCREENING Routine 04/15/2019 from Last 3 Months or Most Recently Relevant to Health Maintenance Results * Outside Lab (03/31/2025 2:16 PM EDT) Only the most recent of2 resultswithin the time period is included. us Historical Provider LAB BLOOD ORDERABLES Bing l Result * (ABNORMAL) Comprehensive metabolic panel (03/09/2025 9:24 AM EDT) SODIUM 133 133 - 146 mmol/L [facility] POTASSIUM 4.2 3.3 - 5.1 mmol/L [facility] CHLORIDE 94(L) 96 - 108 mmol/L [facility] CO2 27 21 - 35 mmol/L [facility] BUN 10 6 - 19 mg/dL [facility] CREATININE 0.50 0.5 - 1.5 mg/dL [facility] GLUCOSE 113(H) 70 - 99 mg/dL [facility] ALBUMIN 4.5 3.9 - 4.8 g/dL [facility] TOTAL PROTEIN 7.2 6.5 - 8.0 g/dL [facility] CALCIUM 9.7 8.4 - 10.3 mg/dL [facility] ALKALINE PHOSPHATASE 95 39 - 117 U/L [facility] TOTAL BILIRUBIN 1.0 0.0 - 1.2 mg/dL [facility] AST 28 0 - 37 U/L [facility] ALT 28 0 - 40 U/L [facility] GLOBULIN 2.7 1 - 4.8 g/dL [facility] EGFR 98 >59 mL/min/1.7 3m2 [facility] Comment:Estimated glomerular filtration rate calculated using the CKD-EPI refit equation. ANION GAP 16 10 - 20 mmol/L [facility] Blood 03/09/2025 9:24 AM EDT 03/09/2025 9:29 AM EDT us Rod Olivia ENDOCRINOLOGY SPECIALIST LAB BLOOD ORDERABLES F inal Result [facility] [address] [place] [address] * (ABNORMAL) CBC and differential (03/09/2025 9:24 AM EDT) WBC 5.50 4.00 - 11.00 K/uL [facility] RBC 4.83 4.00 - 5.20 M/uL [facility] HGB 14.2 12.0 - 16.0 g/dL [facility] HCT 41.9 36.0 - 46.0 % [facility] PLT 246 150 - 450 K/uL [facility] MCV 86.7 80.0 - 100.0 fL [facility] MCH 29.4 27.0 - 31.0 pg [facility] MCHC 33.9 32.0 - 36.0 g/dL [facility] RDW 12.8 11.5 - 14.5 % [facility] MPV 9.8 8.4 - 12.0 fL [facility] NRBC 0.00 0.00 /100 WBCs [facility] ABSOLUTE NRBC 0.00 0.00 K/uL [facility] DIFF METHOD Auto [facility] NEUTS 66.4 48.0 - 76.0 % [facility] LYMPHS 16.2(L) 18.0 - 41.0 % [facility] MONOS 11.6(H) 4.0 - 11.0 % [facility] EOS 4.7 0.0 - 5.0 % [facility] BASOS 0.9 0.0 - 1.5 % [facility] Granulocytes, immature (%) 0.2 0.0 - 0.9 % [facility] ABSOLUTE NEUTS 3.65 1.92 - 7.60 K/uL [facility] ABSOLUTE LYMPHS 0.89 0.72 - 4.10 K/uL [facility] ABSOLUTE MONOS 0.64 0.16 - 1.10 K/uL [facility] ABSOLUTE EOS 0.26 0.00 - 0.50 K/uL [facility] ABSOLUTE BASOS 0.05 0.00 - 0.15 K/uL [facility] Granulocytes, immature 0.01 0.00 - 0.09 K/uL [facility] Blood 03/09/2025 9:24 AM EDT 03/09/2025 9:29 AM EDT us Rod Olivia ENDOCRINOLOGY SPECIALIST LAB BLOOD ORDERABLES F inal Result [facility] [address] [place], [place] [id number] * Hemoglobin A1c (03/09/2025 9:24 AM EDT) HEMOGLOBIN A1C 5.8 4.3 - 5.8 % [facility] Blood 03/09/2025 9:24 AM EDT 03/09/2025 9:29 AM EDT Rod Thompson Olivia [facility] LAB BLOOD ORDERABLES F inal Result Performing Organization Address [facility] Co de Phone Number [address] [address] * (ABNORMAL) Lipid panel (03/09/2025 9:24 AM EDT) HDL 55 mg/dL [facility] Comment: Interpretation <40 mg/dL: Low HDL cholesterol (major risk factor for CHD) Greater than or equal to 60 mg/dL: High HDL cholesterol ( negative risk factor for CHD) HDL - cholesterol is affected by a number of factors, e.g. smoking, excerise, hormones, sex and age. CHOLESTEROL 214 0 - 240 mg/dL [facility] TRIGLYCERIDES 211(H) 30 - 160 mg/dL [facility] LDL 117 50 - 129 mg/dL [facility] Comment: LDL levels in terms of risk for coronary heart disease: <100 mg/dL: Optimal 100-129 mg/dL: Near or above optimal 130-159 mg/dL: Borderline high 160-189 mg/dL: High >190 mg/dL: Very High CARDIAC RISK RATIO 3.9 3.3 - 4.4 C [facility] Blood 03/09/2025 9:24 AM EDT 03/09/2025 9:29 AM EDT Rod Olivia [facility] LAB BLOOD ORDERABLES F inal Result Performing Organization Address [facility]/ZIP Co de Phone Number [address] [address] * HM MAMMOGRAPHY FOR RESULT ENTRY ONLY (05/12/2024 1:00 PM EDT) Historical Provider HEALTH MAINTENANCE Edited Result - Final * Hepatitis C antibody, qualitative (02/29/2020 8:40 AM EDT) HCV NON-REACTIV E NON-REACTI VE [facility] Blood 02/29/2020 8:40 AM EDT 02/29/2020 8:45 AM EDT us Christine Gordon NP LAB BLOOD ORDERABLES Final Resu lt [facility] [address] [place] [address] * DXA Screening (04/15/2019) Anatomical Region Laterality Modality Bone Density Bone Density us Christine Gordon NP IMG BD BONE DENSITY DEXA Edited Result - Final from Last 3 Months or Most Recently Relevant to Health Maintenance Insurance MEDICARE PART A & B [facility] MEDEX SUPPLEMENT MEDICARE PART A & B [employer] MEDEX SUPPLEMENT MEDICARE PART A & B [employer] MEDEX SUPPLEMENT MEDICARE PART A & B [employer] MEDEX SUPPLEMENT MEDICARE PART A & B [employer] MEDEX SUPPLEMENT MEDICARE PART A & B [employer] MEDEX SUPPLEMENT MEDICARE PART A & B [employer] MEDEX SUPPLEMENT MEDICARE PART A & B [employer] MEDEX SUPPLEMENT MEDICARE PART A & B [employer] MEDEX SUPPLEMENT Care Teams Quality Systems Technician Relationship Specialty Start Date End Date Rod Olivia CNP [address] [facility] [place] [address] [email or web address] PCP - General Family Medicine 08/25/23 Heather Haynes NP [address] [place] [address] Family Medicine 02/17/20 Additional Source Comments The information contained in this document represents components of the legal health record. It is not the complete legal health record.[facility]
== END 2025-04-12 11:22 | disposition home or self-care (01) ==
LOC: HO.RESP 11:21
PROVIDERS: PCP Nurse Practitioner Primary Care; Visit Provider Internal Medicine Pulmonary Disease
DX: R05.3 Chronic cough (principal)
CPT/HCPCS: 94010; 94640; 94727; 94729

== ENCOUNTER → 2025-04-12 11:29 | Outpatient (BNV) | payer MEDICARE, SELFPAY | PROVIDERS: PCP Nurse Practitioner Primary Care; Visit Provider Hospitalist | DX: J98.4 Other disorders of lung (principal) | CPT/HCPCS: 94060; 94727; 94729 ==

== ENCOUNTER 2025-06-02 07:35 | Outpatient (REF) | payer MEDICARE, SELFPAY ==
--- OUTSIDE RECORDS SUMMARY | 2024-12-08 05:05 | XMS_ITS | Continuity of Care Document ---
Author Organization [facility] Address [address] [place] [address] Phone Care Team Providers Care [employer] Reading Teacher Name Role Phone Sachin NEWMAN, Check Unavailable [...] exam of neck spine, complete Office/outpatient visit,[place], [facility] [place] Advance Directives Directive Yes / No Effective Date File Name No Information Encounters Encounter Description Practice Location Reason(s) For Visit Diagnoses Date Provider Providers Copied on Encounter Office/outpa tient visit,est, [facility], [address], [place], [place], [address], tel:[phone] [facility] [address] right hand pain (chief complaint) Body mass index [BMI] 27.0-27.9, adultTrigger finger, right ring finger 5 Sachin Ashley. [address], [place], [place], [address] , [place]. tel:[phone] Referring Provider: Dion Stephenson MD C, [address], [place], [address] . tel:[phone] Office/outpa tient visit,[facility], [address], [place], [place], [address], [place] tel:[phone] [facility] right hand pain (chief complaint) Trigger finger, right ring finger Dec-0 4 Sachin Ashley. [address], [place], [place], [address] , [place]. tel:[phone] Referring Provider: Dion Tony, [address], [place], [address] . tel:[phone] Office/outpa tient visit,[facility], [address], [place], [place], [address], [place] tel:[phone] [facility] - Walk-in right hand pain (chief complaint) lumbar spine (chief complaint) Right hand painLumbar painTrigger finger, right ring fingerTrochanter ic bursitis of right hip Oct-2 4 Favio Tony Alexandr. [address], [place], [place], [address] , [place]. tel:[phone] Referring Provider: Alexandr Tony, [address], [place], [address] . tel:[phone] Office/outpa tient visit,[facility], [address], [place], [place], [address], [place] tel:[phone] [facility] - Walk-in right hip pain (chief complaint) Acute right hip painGreater trochanteric bursitis of right hip Jun- 3 Favio Tony Alexandr. [address], [place], [place], [address] , [place]. tel:[phone] Referring Provider: Alexandr Tony, [address], [place], [address] . tel:[phone] Office/outpa tient visit,[facility], [address], [place], [place], [address], [place] tel:[phone] [facility] [address] cervical spine (chief complaint) Cervical stenosis of spineRadiculopat hy, cervical region 2 Ganesh Easley. [address], [place], [place], [address] , [place]. tel:[phone] Referring Provider: Tomi Reina MD, [address], [place], [address] . tel:[phone] Office/outpa tient visit,[facility], [facility], [address], [place], [place], [address], [place] tel:[phone] [facility] [address] cervical spine (chief complaint) Cervical stenosis of spineRadiculopat hy, cervical region 2 Ganesh Pattersonia. [address], [place], [place], [address] , [place]. tel:[phone] Referring Provider: Tracee RAMOS, [address], [place], [address] . tel:[phone] Office/outpa tient visit,[facility], [facility], [address], [place], [place], [address], [place] tel:[phone] [facility] [address] cervical spine (chief complaint) Cervical stenosis of spineRadiculopat hy, cervical region 2 Ganesh Easley. [address], [place], [place], [address] , [place]. [phone] Referring Provider: Tracee RAMOS, [address], [place], [address] . tel:[phone] Office/outpa tient visit,est, [facility], [address], [place], [place], [address], [place] tel:[phone] [facility] [address] cervical spine (chief complaint) Cervical stenosis of spineHerniated nucleus pulposus, C4-5Herniated nucleus pulposus, C5-6Herniated nucleus pulposus, C6-7Spondylolist hesis, cervical regionConnective tissue and disc stenosis of intervertebral foramina of cervical regionRight arm numbness 1 Shay Gonzalez. [address], [place], [place], [address] , [place]. [phone] Referring Provider: Carlos Day MD, [address], [place], [address] . tel:[phone] Office/outpa tient visit,[facility], [address], [place], [address], [place] tel:[phone] [facility] 204 cervical spine (chief complaint) Radiculopathy, cervical regionCervical stenosis of spineBody mass index (BMI) 27.0-27.9, adult 1 Nuno Krishna. [address], [place], [place], [address] , [place]. [phone] Referring Provider: Tomi Reina MD, [address], [place], [address] . tel:[phone] Office/outpa [place]ient visit,[facility], [address], [address], [place] tel:[phone] [facility] 400 cervical spine (chief complaint) Cervical stenosis of spineRadiculopat hy, cervical regionHerniated nucleus pulposus, C4-5Herniated nucleus pulposus, C5-6Herniated nucleus pulposus, C6-7Connective tissue and disc stenosis of intervertebral foramina of cervical regionRight arm numbness 1 Shay Gonzalez. [address], [place], [place], [address] , [place]. tel:[phone] Referring Provider: Daquan Koo, [address], [place], [address] . tel:[phone] [facility], [address], [place], [place], [address], [place] tel:[phone] [facility] [address] Body mass index (BMI) 27.0-27.9, adult 1 Nuno Krishna. [address], [place], [place], [address] , [place]. tel: [phone] Referring Provider: Tomi Reina MD, [address], [place], [address] . tel:[phone] Office/outpa tient visit,[facility], [address], [place], [place], [address], [place] tel:[phone] [facility] [address] cervical spine (chief complaint) Body mass index (BMI) 27.0-27.9, adultRadiculopat hy, cervical regionCervical stenosis of spine 1 Nuno Krishna. [address], [place], [place], [address] , [place]. tel: [phone] Referring Provider: Daquan Koo, [address] [facility] [address] [facility] [address], [place], [address] . tel:[phone] Office/outpa tient visit,[facility], [address], [place], [place], [address], [place] tel:[phone] [facility] [address] cervical spine (chief complaint) Neck painBody mass index (BMI) 27.0-27.9, adultRadiculopat hy, cervical region 0 Merced Butt. [address], [place], [place], [address] , [place]. tel:[phone] Referring Provider: Daquan Koo, [address], [place], [address] . tel:[phone] [facility], [address], [place], [place], [address], tel:[phone] [facility] [address] Radiculopathy, cervical region 4-202 0 Guettler DPT Rani. [address], [place], [facility], . tel:[phone] Referring Provider: Carlos Day MD, [address], [place], [address] . tel:[phone] [facility], [address], [place], [place], [address], tel:[phone] [facility] [address] Radiculopathy, cervical region 1 0 Guettler DPT Rani. [address] [facility], [place], [facility], . tel:[phone] Referring Provider: Carlos Day MD, [address], [place], [address] . tel:[phone] [facility], [address], [place], [place], [address], tel:[phone] [facility] - PT [address] Cervical radiculopathy 9-202 0 Guettler DPT Rani. [address] [facility], [place], [facility], . tel:[phone] Referring Provider: Carlos Day MD, [address], [place], [address] . tel:[phone] Office/outpa tient visit,[facility], [address], [place], [place], [address], tel:[phone] [facility] - Walk-in cervical spine (chief complaint) Body mass index (BMI) 27.0-27.9, adultNeck painCervical radiculopathy Nov-3 0 0 Miriam Ortiz. [address], [place], [place], [address] , [place]. tel:[phone] Referring Provider: Angel Tony, [address], [place], [address] . tel:[phone] Family History Family Member Type Diagnosis Age At Onset No Information Payers Payer name Insurance type Covered libertarian ID Authoriza tion(s) MEDICARE [id number] BCBS PPO OUT OF STATE [id number] Social History Type Description Quantity Date Captured [...] 2019. Patient received 2 injections one in [place] and one with Alexandr HUNTLEY which provided [...] finger. She states she an injection up [place] in April 2022 that she has been [...] today's injection. She will be returning to [facility] for the summer in another month. [...] since 2022, no trauma. Seen at [facility] on 10/21/2023 and received an injection which provided significant improvement X8 months. Discussed repeat injection vs TFR; wants to proceed non-opOn 12/08/2024: Moderate improvement s/p RT RF TF injection received on 07/11/2024, with mild recurrence. Unchanged exam. Requests repeat inj Patient Care Teams Name Effective Dates (start - stop) Status Members No Information
--- NOTE | ~2025-06-02 | CT_ITS ---
CLINICAL HISTORY: J84.9 - Interstitial pulmonary disease, unspecified CT chest without contrast Comparison: None provided Findings: The heart is normal size. The visualized thyroid and mediastinum are unremarkable. There is minimal linear interstitial consolidation bilaterally. The upper abdomen is unremarkable. The bones are intact. IMPRESSION: 1. Minimal interstitial consolidation. This document has been electronically signed by: Garret Perdomo MD on 06/02/2025 09:03:14
--- OUTSIDE RECORDS SUMMARY | 2025-06-02 07:38 | XMS_ITS | Patient Health Record ---
Author Organization [facility] Address [address] [facility] [place] [address] Care Team Providers Care M1 Armor Crewman Name Role Phone Christine Gordon NP Primary Care Provider Scarlet Acharya Unavailable [phone] Allergies Allergen (clinical drug ingredient) Drug/Non Drug [...] Problem Acquired hammer toe of right foot (7784329653794790 ) Hammer toe of right foot (M20.41) Active confirmed Problem Localized, primary osteoarthritis of the ankle and/or foot (201695877) Osteoarthritis of right ankle and foot (M19.071) Active confirmed Plan Of Treatment Pending Test Test Name Order Date X ray : Foot, right 3V 02/19/2022 Insurance Providers Payer Name Payer Address Payer Phone Subscriber Number Group Number Insured Name Patient Relationship to Insured Coverage Start Date Coverage End Date Medicare National Govt Svcs Inc [address] [place] [address] [id number] Robyn Vargas Self - patient is the insured [facility] [address] [place] [address] [phone] [id number] Robyn Vargas Self - patient is the insured Medical (General) History Medical History History ICD Code Cholesterol Depression High blood pressure Measles Mumps Chicken pox Surgical History Surgery Date(Month/Year) tonsillectomy 1957 breast biopsy x2 1997
--- OUTSIDE RECORDS SUMMARY | 2025-06-02 07:38 | XMS_ITS | Patient Health Record ---
Author Organization [facility] Address [address] [place] [address] Care Team Providers Care Director Employment Name Role Phone Heidi SIMMONS, Christine Primary Care Provider Praveen Walker Jr Unavailable Allergies Allergen (clinical drug ingredient) Drug/Non Drug Allergy documented on EMR Reaction Allergy Type Onset Date Status Sulfa Unknown Drug Allergy Active Reason For Referral No Information Medications Medication SIG (Take, Route, Frequency, Duration) Notes Start Date End Date Status Suprep Bowel Prep 1 as directed Orally 1; Duration: 1 dose 10/10/2015 Active Escitalopram Oxalate 15 [...] Problem Status W/U Status Risk Notes Problem Colon cancer screening (042525564) Colon cancer screening (Z12.11) Active confirmed Problem Already on aspirin (340791157) watermaster current use of aspirin (Z79.82) Active confirmed Plan Of Treatment Future Test Test Name Order Date COLONOSCOPY 10/10/2015 Insurance Providers Payer Name Payer Address Payer Phone Subscriber Number Group Number Insured Name Patient Relationship to Insured Coverage Start Date Coverage End Date MEDICARE OF [place] [address] [place] [address] [id number] LYRIC LINARES Self - patient is the insured [employer] CLAIMS [address] [place] [address] [id number] LYRIC LINARES Self - patient is the insured Medical (General) History Medical History History ICD Code Denies HI,DM,CVA,Lung disease,renal dise ase Surgical History Surgery Date(Month/Year) tonsillectomy breast biopsy-left
--- OUTSIDE RECORDS SUMMARY | 2025-06-02 07:38 | XMS_ITS | Patient Health Record ---
Author Organization [facility] Address [address] [place] [address] Care Team Providers Care Surveillance Sensor Operator Name Role Phone a, n Primary Care Provider Idris Valdez MD, Raja Unavailable [phone] Reason For Referral No Information Medications Medication SIG (Take, Route, Frequency, Duration) Notes Start Date End Date Status COVID-19 mRNA Vaccine ([employer]) 30 MCG/0.3ML as directed Intramuscular Active Immunizations [...] Coverage End Date Medicare of [place] / [facility] Serv [address] [address] [place] [address] [phone] [id number] Robyn Vargas Self - patient is the insured Blue Cross and Blue Shield [facility] [address] [place] [address] [phone] [id number] Robyn Vargas Self - patient is the insured
--- OUTSIDE RECORDS SUMMARY | 2025-06-02 07:38 | XMS_ITS | Clinical Summary ---
Author Organization [facility] Address [address] [place] [address] Phone Care Team Providers Care Special Trackwork Blacksmith Name Role Phone Heather Haynes ARTILLERY MAINTENANCE SUPERVISOR Unavailable [phone] Rod Olivia ANVIL SEATING PRESS OPERATOR Primary Care Provider Allergies Active Allergy Reactions Criticality Noted Date Comments Chemical Allergens Rash Low 04/14/2024 PPD hair dye Sulfa (Sulfonamide Antibiotics) Rash Low 11/01 Medications atorvastatin (LIPITOR) 40 MG tabletIndications:M ixed hyperlipidemia Take 1 tablet (40 mg total) by mouth every morning. 90 tablet 3 4 Active hydroCHLOROthiazide 25 MG tabletIndications:E ssential hypertension Take 1 tablet (25 mg total) by mouth every morning. 90 tablet 3 4 Active escitalopram oxalate (LEXAPRO) 20 MG tabletIndications:A nxiety TAKE 1 TABLET DAILY 90 tablet 3 5 Active atenolol (TENORMIN) 25 MG tabletIndications:E ssential hypertension TAKE 1 TABLET DAILY FOR 25 DAYS 90 tablet 3 5 Active LORazepam (ATIVAN) 0.5 MG tabletIndications:P rimary insomnia Take 1-2 tablets (0.5-1 mg total) by mouth nightly at bedtime as needed for anxiety. 60 tablet 1 5 06/19/20 25 Active lisinopril (PRINIVIL,ZESTRIL) 10 MG tabletIndications:E ssential hypertension Take 1 tablet (10 mg total) by mouth every morning. 07/19/20 Active Active Problems Problem Noted Date Diagnosed Date Depression 03/04/2023 03/04/2023 History of squamous cell carcinoma of skin 02/26 Achilles tendinitis of left lower extremity 02/01 Osteopenia determined by x-ray 01/19/2019 Anxiety 11/10/2017 Mixed hyperlipidemia 11/10/2017 Essential hypertension 11/10/2017 Primary insomnia 11/10/2017 Encounters Date Type Department Care Team Description 04/20/2025 1:30 PM EDT Office Visit [address] [place] [address] Rod Olivia CNP Annual physical exam (Primary Dx); Generalized anxiety disorder; Need for prophylactic vaccination and inoculation against influenza; Primary insomnia; Left hip pain; Essential hypertension; 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; Narrow angle glaucoma suspect, bilateral; Mixed hyperlipidemia; Chronic cough 04/07/2025 Orders Only [address] [place] [address] ProviderRaulito MD 04/05/2025 Orders Only [address] [place] [address] ProviderRaulito MD 03/31/[address] [place] [address] Rod Olivia CNP Medication Refill 03/09/2025 9:25 AM EDT - 03/09/2025 11:59 PM EDT Hospital Encounter [facility] [address] [facility] [place] [address] Rod Olivia CNP Discharge Disposition: Home or Self Care from Last 3 Months Immunizations Immunization Administration Dates Next Due COVID-19 (Pre) Pfizer Vaccine, mRNA, PF 09/19/2020,08/30/2020 COVID-19 (Pre-05/25) Pfizer Vaccine, mRNA, sarah-sucrose, PF 12/03/2021,06/25/2021 INFLUENZA, SPLIT VIRUS, TRIV ALENT W/ PRESERVATIVE IM 05/19/2014 Influenza High-Dose Quadriva lent Preservative Free IM 05/05/2022,05/04/2020 Influenza High-Dose Trivalen t Preservative Free IM 04/20/2025,04/14/2024,05/27/2019,04/16,06/10/2016 Influenza Quadrivalent w/ Pr eservative IM 05/15/2017 Pneumococcal conjugate PCV13 11/11/2016 Pneumococcal polysaccharide PPSV23 02/17/2020, Tdap 02/17/2020 Zoster live 04/12/2013 Family History Medical History Relation Comments Bipolar disorder Daughter Cardiomyopathy Father Heart disease Mother Hypertension Mother Glaucoma Sister Hypertension Sister Relation Status Comments Daughter Alive [...] ecorded Denied Basic Needs Not on file 04/20/2025 In the past 12 months have y ou been in a relationship with a person who hurts, threatens, or tries to control you? No 04/20/2025 Worried food would run out Not on file 04/20 In the past 12 months have y ou been in a relationship with a person who hurts, threatens, or tries to control you? No 04/20/2025 Comments Unknown Sex and Gender Information Value [...] Sign Reading Time Taken Comments Blood Pressure 110/58 04/20/2025 1:54 PM EDT Pulse 75 04/20/2025 1:34 PM EDT Temperature 36 C (96.8 F) 04/20/2025 1:34 PM EDT Respiratory Rate 16 03/04/2023 9:21 AM EDT Oxygen Saturation 97% 04/20/2025 1:34 PM EDT Inhaled Oxygen Concentration - - Weight 70.3 kg (155 lb) 04/20/2025 1:34 PM EDT Height 155.6 cm (5' 1.26 ) 01/12/2025 9:07 AM ED T Body Mass Index 29.04 01/12/2025 9:07 AM EDT Plan of Treatment Upcoming Encounters Date Type Department Care Team (Late st Contact Info) Description 04/24/2026 1:30 PM EDT Office Visit [facility] [address] [place] [address] Rod Olivia, ANVIL SEATING PRESS OPERATOR [address] [place] [address] Health Maintenance Due Date Last Done Comments COLOGUARD 12/17/1995 FIT TEST 12/17/1995 FOBT 12/17/1995 SIGMOIDOSCOPY 12/17/1995 VIRTUAL COLONOSCOPY 12/17/1995 ZOSTER VACCINES (2 of 3) 06/07/2013 04/12/2013 FOLLOW UP BONE DENSITY TESTING 04/15/2021 04/15/2019, 10/17/2015 COVID-19 VACCINE ( season) 2025 12/03/2021, 06/25/2021, 09/19/2020, Additional history exists BLOOD PRESSURE 10/18/2025 04/20/2025 RSV VACCINE (1 - 1-dose 75+ series) 2025 MAMMOGRAM 01/12/2026 01/12/2025, 05/03, 01/05/2024, Additional history exists COLONOSCOPY 01/29/2026 01/30/2016 COLORECTAL CANCER SCREENING 01/29/2026 CREATININE LEVEL 03/09/2026 03/09/2025, 07/2024, 03/17/2022, Additional history exists LIPID PANEL 03/09/2026 03/09/2025, 01/01, 03/24/2023, Additional history exists POTASSIUM LEVEL 03/09/2026 03/09/2025, 01/01, 03/17/2022, Additional history exists DEPRESSION SCREENING 04/20/2026 04/20/2025 Adult Td,Tdap Booster 02/16/2030 02/17/2020 OSTEOPOROSIS SCREENING INITIAL (ONE-TIME) Completed 04/15/2019, 10/17/2015 PNEUMOCOCCAL VACCINES (50+ years) Completed 02/17/2020, 11/11/2016, 06/09/2012 HEPATITIS C SCREENING Completed 02/29/2020 INFLUENZA VACCINE Completed 04/20/2025, , 05/05/2022, Additional history exists SMOKING STATUS SCREENING (Once After 26 Yrs) Completed 04/20/2025 HEPATITIS A VACCINES Aged Out No long [...] EDT) SODIUM 133 133 - 146 mmol/L [facility] POTASSIUM 4.2 3.3 - 5.1 mmol/L [facility] CHLORIDE 94(L) 96 - 108 mmol/L [facility] CO2 27 21 - 35 mmol/L [facility] BUN 10 6 - 19 mg/dL [facility] CREATININE 0.50 0.5 - 1.5 mg/dL [facility] GLUCOSE 113(H) 70 - 99 mg/dL [facility] ALBUMIN 4.5 3.9 - 4.8 g/dL [facility] TOTAL PROTEIN 7.2 6.5 - 8.0 g/dL [facility] CALCIUM 9.7 8.4 - 10.3 mg/dL [facility] ALKALINE PHOSPHATASE 95 39 - 117 U/L [facility] TOTAL BILIRUBIN 1.0 0.0 - 1.2 mg/dL [facility] AST 28 0 - 37 U/L [facility] ALT 28 0 - 40 U/L [facility] GLOBULIN 2.7 1 - 4.8 g/dL [facility] EGFR 98 >59 mL/min/1.7 3m2 [facility] Comment:Estimated glomerular filtration rate calculated using the CKD-EPI refit equation. ANION GAP 16 10 - 20 mmol/L [facility] Blood 03/09/2025 9:24 AM EDT 03/09/2025 9:29 AM EDT us Rod Olivia ANVIL SEATING PRESS OPERATOR LAB BLOOD ORDERABLES F inal Result [address] [id number] * (ABNORMAL) CBC and differential (03/09/2025 9:24 AM EDT) WBC 5.50 4.00 - 11.00 K/uL [facility] RBC 4.83 4.00 - 5.20 M/uL [facility] HGB 14.2 12.0 - 16.0 g/dL [facility] HCT 41.9 36.0 - 46.0 % [facility] PLT 246 150 - 450 K/uL [facility] MCV 86.7 80.0 - 100.0 fL [facility] MCH 29.4 27.0 - 31.0 pg [facility] MCHC 33.9 32.0 - 36.0 g/dL [facility] RDW 12.8 11.5 - 14.5 % [facility] MPV 9.8 8.4 - 12.0 fL [facility] NRBC 0.00 0.00 /100 WBCs [facility] ABSOLUTE NRBC 0.00 0.00 K/uL [facility] DIFF METHOD Auto [facility] NEUTS 66.4 48.0 - 76.0 % [facility] LYMPHS 16.2(L) 18.0 - 41.0 % [facility] MONOS 11.6(H) 4.0 - 11.0 % [facility] EOS 4.7 0.0 - 5.0 % [facility] BASOS 0.9 0.0 - 1.5 % [facility] Granulocytes, immature (%) 0.2 0.0 - 0.9 % [facility] ABSOLUTE NEUTS 3.65 1.92 - 7.60 K/uL [facility] ABSOLUTE LYMPHS 0.89 0.72 - 4.10 K/uL [facility] ABSOLUTE MONOS 0.64 0.16 - 1.10 K/uL [facility] ABSOLUTE EOS 0.26 0.00 - 0.50 K/uL [facility] ABSOLUTE BASOS 0.05 0.00 - 0.15 K/uL [facility] Granulocytes, immature 0.01 0.00 - 0.09 K/uL [facility] Blood 03/09/2025 9:24 AM EDT 03/09/2025 9:29 AM EDT us Rod Olivia ANVIL SEATING PRESS OPERATOR LAB BLOOD ORDERABLES F inal Result [facility] [address] [place] [address] * Hemoglobin A1c (03/09/2025 9:24 AM EDT) HEMOGLOBIN A1C 5.8 4.3 - 5.8 % [facility] Blood 03/09/2025 9:24 AM EDT 03/09/2025 9:29 AM EDT Rdo Olivia [facility] LAB BLOOD ORDERABLES F inal Result Performing Organization Address [facility] Co de Phone Number [address] [address] * (ABNORMAL) Lipid panel (03/09/2025 9:24 AM EDT) HDL 55 mg/dL [facility] Comment: Interpretation <40 mg/dL: Low HDL cholesterol (major risk factor for CHD) Greater than or equal to 60 mg/dL: High HDL cholesterol ( negative risk factor for CHD) HDL - cholesterol is affected by a number of factors, e.g. smoking, excerise, hormones, sex and age. CHOLESTEROL 214 0 - 240 mg/dL [facility] TRIGLYCERIDES 211(H) 30 - 160 mg/dL [facility] LDL 117 50 - 129 mg/dL [facility] Comment: LDL levels in terms of risk for coronary heart disease: <100 mg/dL: Optimal 100-129 mg/dL: Near or above optimal 130-159 mg/dL: Borderline high 160-189 mg/dL: High >190 mg/dL: Very High CARDIAC RISK RATIO 3.9 3.3 - 4.4 [facility] Blood 03/09/2025 9:24 AM EDT 03/09/2025 9:29 AM EDT Rod Olivia [facility] LAB BLOOD ORDERABLES F inal Result Performing Organization Address [facility] Co de Phone Number [address] [address] * HM MAMMOGRAPHY FOR RESULT ENTRY ONLY (05/12/2024 1:00 PM EDT) Historical Provider HEALTH MAINTENANCE Edited Result - Final * Hepatitis C antibody, qualitative (02/29/2020 8:40 AM EDT) HCV NON-REACTIV E NON-REACTI VE [facility] Blood 02/29/2020 8:40 AM EDT 02/29/2020 8:45 AM EDT us Christine Gordon NP LAB BLOOD ORDERABLES Final Resu lt [facility] [address] [place] [address] * DXA Screening (04/15/2019) Anatomical Region Laterality Modality Bone Density Bone Density us Christine Gordon NP IMG BD BONE DENSITY DEXA Edited Result - Final from Last 3 Months or Most Recently Relevant to Health Maintenance Insurance MEDICARE PART A & B [facility] [facility] CROSS MEDEX SUPPLEMENT MEDICARE PART A & B [employer] MEDEX SUPPLEMENT MEDICARE PART A & B [employer] MEDEX SUPPLEMENT MEDICARE PART A & B [employer] MEDEX SUPPLEMENT MEDICARE PART A & B [employer] MEDEX SUPPLEMENT MEDICARE PART A & B [employer] MEDEX SUPPLEMENT MEDICARE PART A & B [employer] SUPPLEMENT MEDICARE PART A & B [employer] MEDEX SUPPLEMENT MEDICARE PART A & B [employer] [facility] CROSS MEDEX SUPPLEMENT Care Teams Special Trackwork Blacksmith Relationship Specialty Start Date End Date Rod Olivia CNP [address] [place] [address], [address] [place] [address] PCP - General Family Medicine 08/25/23 Heather Haynes NP [address] [place] [id number] Family Medicine 02/17/20 Additional Source Comments The information contained in this document represents components of the legal health record. It is not the complete legal health record.[facility]
== END 2025-06-02 07:36 | disposition home or self-care (01) ==
LOC: HO.CT 07:35
PROVIDERS: PCP Nurse Practitioner Primary Care; Visit Provider Internal Medicine Pulmonary Disease
DX: J84.9 Interstitial pulmonary disease, unspecified (principal)
CPT/HCPCS: 71250

== ENCOUNTER → 2025-06-02 07:35 | Outpatient (BNV) | payer MEDICARE, SELFPAY | PROVIDERS: PCP Nurse Practitioner Primary Care; Visit Provider Specialist | DX: J84.9 Interstitial pulmonary disease, unspecified (principal) | CPT/HCPCS: 71250 ==

== ENCOUNTER 2025-07-18 09:54 | Outpatient (REF) | payer MEDICARE, SELFPAY ==
--- OUTSIDE RECORDS SUMMARY | 2025-07-18 11:56 | XMS_ITS | Patient Health Record ---
Author Organization [facility] Address [address] [address] Care Team Providers Care Application Security Developer Name Role Phone Christine Gordon NP Primary Care Provider Scarlet Acharya Unavailable [phone] Allergies Allergen (clinical drug ingredient) Drug/Non Drug [...] Problem Acquired hammer toe of right foot (2016508676047697 ) Hammer toe of right foot (M20.41) Active confirmed Problem Localized, primary osteoarthritis of the ankle and/or foot (289651742) Osteoarthritis of right ankle and foot (M19.071) Active confirmed Plan Of Treatment Pending Test Test Name Order Date X ray : Foot, right 3V 02/19/2022 Insurance Providers Payer Name Payer Address Payer Phone Subscriber Number Group Number Insured Name Patient Relationship to Insured Coverage Start Date Coverage End Date Medicare National [employer]t S[employer] [address] [facility] [place] [address] [id number] Robyn Vargas Self - patient is the insured [facility] [address] [place] [address] [id number] Robyn Vargas Self - patient is the insured Medical (General) History Medical History History ICD Code Cholesterol Depression High blood pressure Measles Mumps Chicken pox Surgical History Surgery Date(Month/Year) tonsillectomy 1957 breast biopsy x2 1997
--- OUTSIDE RECORDS SUMMARY | 2025-07-18 11:56 | XMS_ITS | Patient Health Record ---
Author Organization [facility] Address [address] [place] [address] Care Team Providers Care Insulation Worker Apprentice Name Role Phone Christine Gordon NP Primary Care Provider Praveen Walker Jr Unavailable Allergies Allergen (clinical drug ingredient) Drug/Non Drug Allergy documented on EMR Reaction Allergy Type Onset Date Status Sulfa Unknown Drug Allergy Active Reason For Referral No Information Medications Medication SIG (Take, Route, Frequency, Duration) Notes Start Date End Date Status Suprep Bowel Prep 1 Solution as directed Orally 1; Duration: 1 dose 10/10/2015 Active Escitalopram Oxalate 15 mg Tablet 1 tablet Orally Once a day Active hydroCHLOROthiazide 12.5 MG Capsule 1 capsule Orally Once a day Active Diovan 160 MG Tablet 1 tablet Orally Once a day Active Atorvastatin Calcium 20 MG Tablet 1 tablet Orally Once a day Active Atenolol 25 MG Tablet 1 tablet Orally Once a day Active Aspirin Adult Low Dose 3x per week Active Social History Social History Additional Details Category Social Info Options Details Miscellaneous: Marital status: Occupation: [employer] @ [employer] Problems Problem Type SNOMED Code ICD Code Onset Dates Problem Status W/U Status Risk Notes Problem Colon cancer screening (067553914) Colon cancer screening (Z12.11) Active confirmed Problem Already on aspirin (076381572) termite inspector current use of aspirin (Z79.82) Active confirmed Plan Of Treatment Future Test Test Name Order Date COLONOSCOPY 10/10/2015 Insurance Providers Payer Name Payer Address Payer Phone Subscriber Number Group Number Insured Name Patient Relationship to Insured Coverage Start Date Coverage End Date MEDICARE OF [place] [employer] [address] [place] [address] [id number] LYRIC LINARES Self - patient is the insured [employer] ATT[employer] CLAIMS [address] [place] [address] [phone] [id number] VIJAY LYRIC Self - patient is the insured Medical (General) History Medical History History ICD Code Denies [place],DM,CVA,Lung disease,renal dise ase Surgical History Surgery Date(Month/Year) tonsillectomy breast biopsy-left
--- OUTSIDE RECORDS SUMMARY | 2025-07-18 11:57 | XMS_ITS | Patient Health Record ---
Author Organization [facility] Address [address] [place] [address] Care Team Providers Care Exchange Specialist Name Role Phone a, n Primary Care Provider Idris Valdez MD, Raja Unavailable [phone] Reason For Referral No Information Medications Medication SIG (Take, Route, Frequency, Duration) Notes Start Date End Date Status COVID-19 mRNA Vaccine ([employer]) 30 MCG/0.3ML as directed Intramuscular Active Immunizations [...] Coverage End Date Medicare of [place] / [facility] Serv [address] [address] [place] [address] [phone] [id number] Robyn Vargas Self - patient is the insured Blue Cross and Blue Shield [facility] [address] [place] [address] [id number] Robyn Vargas Self - patient is the insured
--- OUTSIDE RECORDS SUMMARY | 2025-07-18 11:57 | XMS_ITS | Clinical Summary ---
Author Organization [facility] Address [address] [place] [address] Phone Care Team Providers Care Master Control Operator Name Role Phone Heather Haynes ASSISTANT PROFESSOR OF GERMAN Unavailable [phone] Rod Olivia BISQUE TILE BURNER Primary Care Provider Allergies Active Allergy Reactions Criticality Noted Date Comments Chemical Allergens Rash Low 04/14/2024 PPD hair dye Sulfa (Sulfonamide Antibiotics) Rash Low 11/01 Medications escitalopram oxalate (LEXAPRO) 20 MG tabletIndications :Anxiety TAKE 1 TABLET DAILY 90 tablet 3 04/04/20 25 Active atenolol (TENORMIN) 25 MG tabletIndications :Essential hypertension TAKE 1 TABLET DAILY FOR 25 DAYS 90 tablet 3 04/04/20 25 Active LORazepam (ATIVAN) 0.5 MG tabletIndications :Primary insomnia Take 1-2 tablets (0.5-1 mg total) by mouth nightly at bedtime as needed for anxiety. 60 tablet 1 04/20/20 25 Active atorvastatin (LIPITOR) 40 MG tabletIndications :Mixed hyperlipidemia TAKE 1 TABLET EVERY MORNING 90 tablet 3 06/20/20 25 Active hydroCHLOROthiazi de 25 MG tabletIndications :Essential hypertension Take 1 tablet (25 mg total) by mouth every morning. 90 tablet 3 06/22/20 25 Active lisinopril (PRINIVIL,ZESTRIL ) 10 MG tabletIndications :Essential hypertension Take 1 tablet (10 mg total) by mouth every morning. 90 tablet 3 06/22/20 25 026 Active atorvastatin (LIPITOR) 40 MG tabletIndications :Mixed hyperlipidemia Take 1 tablet (40 mg total) by mouth every morning. 90 tablet 3 04/14/20 24 025 Discontinued hydroCHLOROthiazi de 25 MG tabletIndications :Essential hypertension Take 1 tablet (25 mg total) by mouth every morning. 90 tablet 3 04/14/20 24 025 Discontinued(Re order) lisinopril (PRINIVIL,ZESTRIL ) 10 MG tabletIndications :Essential hypertension Take 1 tablet (10 mg total) by mouth every morning. 04/20/20 25 025 Discontinued(Re order) Active Problems Problem Noted Date Diagnosed Date Depression 03/04/2023 03/04/2023 History of squamous cell carcinoma of skin 02/26 Achilles tendinitis of left lower extremity 02/01 Osteopenia determined by x-ray 01/19/2019 Anxiety 11/10/2017 Mixed hyperlipidemia 11/10/2017 Essential hypertension 11/10/2017 Primary insomnia 11/10/2017 Encounters Date Type Department Care Team Description 06/20/[address] [place] [address] Rod Olivia CNP Medication Refill 06/02/2025 Orders Only [facility] [address] [place] [address] ProviderRaulito MD 04/20/2025 1:30 PM EDT Office Visit [address] [place] [address] Rod Olivia CNP Annual physical exam (Primary Dx); Generalized anxiety disorder; Need for prophylactic vaccination and inoculation against influenza; Primary insomnia; Left hip pain; Essential hypertension; 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; Narrow angle glaucoma suspect, bilateral; Mixed hyperlipidemia; Chronic cough from Last 3 Months Immunizations Immunization Administration [...] EDT Office Visit [facility] [address] [place] [address] Rod Olivia, BISQUE TILE BURNER [address] [place] [address] Health Maintenance Due Date Last Done Comments [...] Name Priority Date/Time Associated Diagnosis Comments OUTSIDE IMAGING Routine 06/02/2025 9:19 AM EDT LIPID PANEL Routine 03/09/2025 9:24 AM EDT Mixed hyperlipidemia COMPREHENSIVE METABOLIC PANEL (CMP) Routine 03/09/2025 9:24 AM EDT Essential hypertension BI MAMMOGRAM SCREENING (BILATERAL) Routine 01/12/2025 9:28 AM EDT Encounter for screening mammogram for malignant neoplasm of breast HEPATITIS C ANTIBODY, QUALITATIVE Routine 02/29/2020 8:40 AM EDT Routine general medical examination at a health care facility BD DXA SCREENING Routine 04/15/2019 from Last 3 Months or Most Recently Relevant to Health Maintenance Results * Outside Imaging Report Only (06/02/2025 9:19 AM EDT) us Historical Provider MD TAMAYO XR CHEST Edited Re sult - Final * (ABNORMAL) Comprehensive metabolic panel (03/09/2025 9:24 AM EDT) SODIUM 133 133 - 146 mmol/L [facility] POTASSIUM 4.2 3.3 - 5.1 mmol/L [facility] CHLORIDE 94(L) 96 - 108 mmol/L [facility] CO2 27 21 - 35 mmol/L [facility] BUN 10 6 - 19 mg/dL [facility] CREATININE 0.50 0.5 - 1.5 mg/dL [facility] GLUCOSE 113(H) 70 - 99 mg/dL [facility] ALBUMIN 4.5 3.9 - 4.8 g/dL [facility] TOTAL PROTEIN 7.2 6.5 - 8.0 g/dL [facility] CALCIUM 9.7 8.4 - 10.3 mg/dL [facility] ALKALINE PHOSPHATASE 95 39 - 117 U/L [facility] TOTAL BILIRUBIN 1.0 0.0 - 1.2 mg/dL [facility] AST 28 0 - 37 U/L [facility] ALT 28 0 - 40 U/L [facility] GLOBULIN 2.7 1 - 4.8 g/dL [facility] EGFR 98 >59 mL/min/1.7 3m2 [facility] Comment:Estimated glomerular filtration rate calculated using the CKD-EPI refit equation. ANION GAP 16 10 - 20 mmol/L [facility] Blood 03/09/2025 9:24 AM EDT 03/09/2025 9:29 AM EDT us Rod Olivia BISQUE TILE BURNER LAB BLOOD BKR ORDERABL ES Final Result [facility] [address] [place] [address] * (ABNORMAL) Lipid panel (03/09/2025 9:24 AM EDT) HDL 55 mg/dL [facility] Comment: Interpretation <40 mg/dL: Low HDL cholesterol (major risk factor for CHD) Greater than or equal to 60 mg/dL: High HDL cholesterol ( negative risk factor for CHD) HDL - cholesterol is affected by a number of factors, e.g. smoking, excerise, hormones, sex and age. CHOLESTEROL 214 0 - 240 mg/dL [facility] TRIGLYCERIDES 211(H) 30 - 160 mg/dL [facility] LDL 117 50 - 129 mg/dL [facility] Comment: LDL levels in terms of risk for coronary heart disease: <100 mg/dL: Optimal 100-129 mg/dL: Near or above optimal 130-159 mg/dL: Borderline high 160-189 mg/dL: High >190 mg/dL: Very High CARDIAC RISK RATIO 3.9 3.3 - 4.4 C [facility] Blood 03/09/2025 9:24 AM EDT 03/09/2025 9:29 AM EDT us Rod Olivia BISQUE TILE BURNER LAB BLOOD BKR ORDERABL ES Final Result Performing Organization Address [facility] Co de Phone Number [address] [address] * MAMMOGRAPHY FOR RESULT ENTRY ONLY (05/12/2024 1:00 PM EDT) us Historical Provider MD HEALTH MAINTENANCE Edited Result - Final * Hepatitis C antibody, qualitative (02/29/2020 8:40 AM EDT) HCV NON-REACTIV E NON-REACTI VE [facility] Blood 02/29/2020 8:40 AM EDT 02/29/2020 8:45 AM EDT us Christine Gordon NP LAB BLOOD BKR ORDERABLES Final Result Performing Organization Address [facility] Co de Phone Number [address] [address] * DXA Screening (04/15/2019) Anatomical Region Laterality Modality Bone Density Bone Density Christine Gordon NP IMG BD BONE DENSITY DEXA Edited Result - Final from Last 3 Months or Most Recently Relevant to Health Maintenance Insurance MEDICARE PART A & B BLUE CROSS MEDEX SUPPLEMENT MEDICARE PART A & B [employer] CROSS MEDEX SUPPLEMENT MEDICARE PART A & B [employer] MEDEX SUPPLEMENT MEDICARE PART A & B [employer] MEDEX SUPPLEMENT MEDICARE PART A & B [employer] MEDEX SUPPLEMENT MEDICARE PART A & B [employer] MEDEX SUPPLEMENT MEDICARE PART A & B [employer] MEDEX SUPPLEMENT MEDICARE PART A & B [employer]UE CROSS MEDEX SUPPLEMENT MEDICARE PART A & B [employer]OSS MEDEX SUPPLEMENT Care Teams Master Control Operator Relationship Specialty Start Date End Date Rod Olivia CNP [address] [place] [address] PCP - General Family Medicine 08/25/23 Heather Haynes NP [address] [place] [address] Family Medicine 02/17/20 Additional Source Comments The information contained in this document represents components of the legal health record. It is not the complete legal health record.[facility]
== END 2025-07-18 09:55 | disposition home or self-care (01) ==
LOC: HO.MAMMO 09:54
PROVIDERS: PCP Nurse Practitioner Primary Care; Visit Provider Nurse Practitioner Primary Care
DX: R05.3 Chronic cough (principal); J84.9 Interstitial pulmonary disease, unspecified; R93.89 Abnormal findings on diagnostic imaging of other specified body structures; Z91.09 Other allergy status, other than to drugs and biological substances; Z12.31 Encounter for screening mammogram for malignant neoplasm of breast
CPT/HCPCS: 77063; 77067; 99212

== ENCOUNTER → 2025-07-18 10:00 | Outpatient (BNV) | payer MEDICARE, SELFPAY | PROVIDERS: PCP Nurse Practitioner Primary Care; Visit Provider Internal Medicine | DX: Z12.31 Encounter for screening mammogram for malignant neoplasm of breast (principal) | CPT/HCPCS: 77063; 77067 ==

== ENCOUNTER 2025-07-18 13:49 | Outpatient (AMB) | payer MEDICARE, SELFPAY ==
[2025-07-18 13:51] VITALS: BP 127/64; PULSE 78; O2SAT 97; BMI 28.2
--- NOTE | 2025-07-18 13:51 | MHC.OFFVIS ---
Vital Signs 07/18/25 13:51 Height 5 ft 2 in Weight 154 lb BMI 28.2 BP 127/64 Blood Pressure Location Rt brachial Position Sitting Pulse 78 Pulse Source Pulse Oximeter Pulse Oximetry (%) 97 Oxygen Delivery Method Room Air Intake Visit Reasons: CT & PFT review Allergies polyvinyl Allergy (Unknown, Uncoded 03/31/25 09:45) Unknown PPD Allergy (Unknown, Uncoded 03/31/25 09:45) Unknown Sulfa Allergy (Unknown, Uncoded 03/31/25 09:45) Unknown HPI HPI CT & PFT review: Details: 74-year-old lady, essentially nonsmoker, here for evaluation of chronic cough ongoing for approximately 2 years, mostly nocturnal, essentially nonproductive, with no triggering factor. Denies GERD symptoms. Patient previously employed as an RT. no family history of lung disease. Patient has been tried on systemic glucocorticoids and albuterol MDI with no significant changes in her cough. She does use lisinopril. After the last office visit patient has completed her pulmonary function test that shows significant bronchodilator response in small to medium airways. Her eosinophils elevated on complete blood cell count RAST is positive for reaction to dust mites. Pressure CT chest shows possible early scarring right-sided posteriorly. [facility], [facility] Social History (Updated 03/31/25 @ 09:45 by Mari Melvin [facility]) Patient Tobacco Use Status: Never used Tobacco Review of Systems Const Denies daytime sleepiness, Denies excessive sweating, Denies fatigue, Denies fever(s), Denies lethargy, Denies malaise, Denies night sweats, Denies snoring and Denies weight loss Eyes Denies blurry vision and Denies itchy eyes ENT Denies nasal congestion, Denies post nasal drip, Denies sinus pain, Denies sinus pressure and Denies other ( Thrush) Card Denies chest pain, Denies pedal edema, Denies dyspnea, Denies orthopnea and Denies paroxysmal nocturnal dyspnea Resp Reports cough, Denies hemoptysis, Denies excessive phlegm production, Denies dyspnea, Denies snoring and Denies wheezing GI Denies abdominal pain and Denies heartburn Musc Denies myalgias, Denies arthralgias and Denies joint swelling Skin/Breast Denies rash Neuro Denies memory loss and Denies seizure-like activity Psych Denies abnormal sleep pattern, Denies anxiety and Denies memory loss Endo Denies excessive sweating, Denies fatigue and Denies heat intolerance Phuc/Lymph Denies easy bruising Aller/Immun Denies itchy eyes, Denies seasonal rhinorrhea and Denies wheezing Physical Exam Vital Signs: Last Vital Signs Pulse 78 07/18/25 13:51 BP 127/64 07/18/25 13:51 Pulse Ox 97 07/18/25 13:51 Oxygen Delivery Method Room Air 07/18/25 13:51 BMI result Body Mass Index 28.2 Const General: no acute distress and alert Nutritional Appearance: not obese Orientation/consciousness: Other orientation findings ( oriented) HEENT Head: Yes atraumatic Eyes General: appearance normal, both eyes and all related structures Sclerae: sclerae normal EOM: EOMs intact bilaterally Neck Neck: Yes supple Lymphatic: no lymphadenopathy noted Resp Effort & Inspection: normal respiratory effort and no use of accessory muscles Auscultation: clear to auscultation bilaterally Cardio Rate: regular rate Rhythm: regular rhythm Heart sounds: no gallops, no murmurs and no rubs Skin General skin exam: other ( warm) Extrem General: No clubbing, No cyanosis and No edema Assessment & Plan Assessment & Plan (1) Chronic cough: Code(s): R05.3 - Chronic cough Category: Medical Plan: Appears to have reactive airway disease etiology with significant component. Will try on empiric Breo. (2) Environmental allergies: Code(s): Z91.09 - Other allergy status, other than to drugs and biological substances Category: Medical Plan: Positive RAST and eosinophilia, if symptomatically not improving on Breo, will consider Singulair and/or Dupixent. (3) Abnormal CT scan, chest: Code(s): R93.89 - Abnormal findings on diagnostic imaging of other specified body structures Category: Medical Plan: Results of CT chest reviewed, early right posterior scarring, will repeat CT chest in 12 months. Medications: New fluticasone furoate-vilanterol 200-25 mcg/dose (Breo Ellipta) 1 inh inhalation DAILY 1 ea 6RF Coding Level of Care Code Est Pt Level 4 (95345) Diagnoses Chronic cough R05.3 Environmental allergies Z91.[address] scan, chest R93.89
== END 2025-07-18 14:02 | disposition home or self-care (01) ==
LOC: HO.HPS 13:49
PROVIDERS: PCP Nurse Practitioner Primary Care; Visit Provider Internal Medicine Pulmonary Disease
DX: R05.3 Chronic cough (principal); Z91.09 Other allergy status, other than to drugs and biological substances; R93.89 Abnormal findings on diagnostic imaging of other specified body structures
CPT/HCPCS: 99214